=== PATIENT | male | born 1965 | race Caucasian/White ===

== ENCOUNTER 2017-01-25 10:50 | Inpatient (IN) | payer MEDICAID, OTHER ==
[~2017-01-25] VITALS: Ht 177.8 cm; Wt 89.9 kg
[~2017-01-25 10:50] MED LIST: AGM875T PO; ASP81TEC PO; CARB100T PO; CARV12.5 PO; CARV6.25 PO; COUMADIN; CRB200T PO; HYDR-34 PO; IBP800T; METR500T PO; OXC10TCR; OXYC-309 PO; VITAMIN B 12 SC; WARF10TA PO; WRF10T; WRF10T PO
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
--- NOTE | 2017-01-25 11:11 | ED Lower Extremity ---
General Chief Complaint: Lower Extremity Stated Complaint: FALL/LEFT ANKLE INJURY Nursing Triage Note: Pt had been "drinking", stumbled and fell in his house early this morning. Nursing Sepsis Screen: No Definite Risk Source: patient, RN notes reviewed Exam Limitations: no limitations History of Present Illness Time seen by provider: 11:11 Initial Comments As above and below. Onset: this morning Pain/Injury Location: left ankle Method of Injury: fell Modifying Factors: Worse With Movement Allergies and Home Medications Allergies Coded Allergies: No Known Drug Allergies (Verified , 01/25/17) Home Medications Carbamazepine 200 Mg Tablet, 600 MG PO BID, (Reported) TAKES 3 (200 MG) TABLETS Carvedilol 12.5 Mg Tablet, 12.5 MG PO BID, (Reported) Cefdinir 300 Mg Capsule, 300 MG PO BID, #14 Prescribed by: RYLAN DOMINIQUE on 01/28/17 1105 Enoxaparin Sodium 100 Mg/1 Ml Syringe, 100 MG SQ BID, #14 Prescribed by: RYLAN DOMINIQUE on 01/28/17 1035 Oxycodone HCl/Acetaminophen 1 Each Tablet, 1 TAB PO Q6H PRN for PAIN, #60 Prescribed by: RYLAN DOMINIQUE on 01/28/17 1035 Warfarin Sodium 10 Mg Tablet, 20 MG PO SuMoWeFrSa, (Reported) TAKES 2 (10MG) TABLETS Warfarin Sodium 10 Mg Tablet, 15 MG PO TuTh, (Reported) TAKES 1 & 1/2 OF A (10 MG) TABLET Constitutional: see HPI Musculoskeletal: see HPI, other (left ankle pain) All Other Systems Reviewed Negative Unless Noted: Yes (Negative excepted noted.) Past Essazmt-Emiguf-Viqzoy Hx Patient Social History Recent Foreign Travel: No Contact w/Someone Who Travel: No Recent Infectious Disease Expo: No Immunizations Up To Date Tetanus Booster (TDap): Less than 5yrs Surgeries HX Surgeries: Yes (BROKEN R FEMUR AND BROKEN R HIP) Respiratory Hx Respiratory Disorders: No Cardiovascular Hx Cardiac Disorders: Yes Neurological Hx Neurological Disorders: Yes Reproductive System Hx Reproductive Disorders: No Genitourinary Hx Genitourinary Disorders: Yes (states fell and hit corner of porch and split kidney in half m1y 5, 2010) Gastrointestinal Hx Gastrointestinal Disorders: No Musculoskeletal Hx Musculoskeletal Disorders: Yes (per pt "fused" rt hip) Musculoskeletal Disorders: Fractures Endocrine Hx Endocrine Disorders: No HEENT HX ENT Disorders: Yes HEENT Disorders: Cataract Hearing Impairment: Denies Cancer Hx Cancer: No Psychosocial Hx Psychiatric Problems: No Integumentary HX Skin/Integumentary Disorder: No Blood Transfusions Hx Blood Disorders: No Family Medical History Family Medial History: Cancer G8 SISTER, Onset:40's - 50 Chest pain 19 MOTHER, Onset:60 years & older Family history: Cardiovascular disease 19 MOTHER, Onset:60 years & older Family history: Diabetes mellitus 19 FATHER, Onset:20's - 25 Family history: Hypertension 19 MOTHER, Onset:40's - 50 Physical Exam Vital Signs Capillary Refill : Less Than 3 Seconds General Appearance: WD/WN, mild distress Cardiovascular: regular rate, rhythm Respiratory: no respiratory distress Ankles: left ankle bone tenderness, left ankle deformity, left ankle limited range of motion, left ankle pain, left ankle soft tissue tenderness, left ankle swelling Neurologic/Psychiatric: no motor/sensory deficits, alert, oriented x 3 Skin: warm/dry Patient Education: Explained Benefits, Pt. Ack. Understanding Agreement on procedure with pt: Yes Breath Sounds per Auscultation: Clear (diminished) Heart Sounds per Auscultation: Regular Airway Exam: Mouth opens >2 fingers, Neck Full Range of Motion, Visulation of Uvula Sedation Adminstration Time: 13:45 Total Time spent in CS 20' Progress/Conclusion Tolerated reduction well. No problems c/ sedation. Splinting and Joint Reduction : Location: left ankle Pre-Proc Neuro Vasc Exam: normal Post-Proc Neuro Vasc Exam: normal Reduction Attempts: 1 Pre-Procedure NV Exam: Yes post joint reduction film: alignment of dislocation/fx improved Bi wrap: Yes Hand-Made Type: orthoglass Splint Application: Short Leg Progress/Results/Core Measures Results/Orders Lab Results Laboratory Tests Test 01/25/17 12:35 Range/Units White Blood Count 5.7 4.3-11.0 10^3/uL Red Blood Count 4.46 4.35-5.85 10^6/uL Hemoglobin 15.4 13.3-17.7 G/DL Hematocrit 44 40-54 % Mean Corpuscular Volume 98 80-99 FL Mean Corpuscular Hemoglobin 35 H 25-34 PG Mean Corpuscular Hemoglobin Concent 35 32-36 G/DL Red Cell Distribution Width 12.5 10.0-14.5 % Platelet Count 176 130-400 10^3/uL Mean Platelet Volume 9.4 7.4-10.4 FL Neutrophils (%) (Auto) 70 42-75 % Lymphocytes (%) (Auto) 17 12-44 % Monocytes (%) (Auto) 11 0-12 % Eosinophils (%) (Auto) 2 0-10 % Basophils (%) (Auto) 0 0-10 % Neutrophils # (Auto) 4.0 1.8-7.8 X 10^3 Lymphocytes # (Auto) 1.0 1.0-4.0 X 10^3 Monocytes # (Auto) 0.6 0.0-1.0 X 10^3 Eosinophils # (Auto) 0.1 0.0-0.3 10^3/uL Basophils # (Auto) 0.0 0.0-0.1 10^3/uL Prothrombin Time 39.3 H 12.2-14.7 SEC INR Comment 4.0 H 0.8-1.4 Activated Partial Thromboplast Time 45 H 24-35 SEC Sodium Level 141 135-145 MMOL/L Potassium Level 4.6 3.6-5.0 MMOL/L Chloride Level 104 98-107 MMOL/L Carbon Dioxide Level 25 21-32 MMOL/L Anion Gap 12 5-14 MMOL/L Blood Urea Nitrogen 16 7-18 MG/DL Creatinine 0.82 0.60-1.30 MG/DL Estimat Glomerular Filtration Rate > 60 BUN/Creatinine Ratio 20 Glucose Level 94 70-105 MG/DL Calcium Level 8.6 8.5-10.1 MG/DL Magnesium Level 2.1 1.8-2.4 MG/DL Total Bilirubin 0.3 0.1-1.0 MG/DL Aspartate Amino Transf (AST/SGOT) 38 H 5-34 U/L Alanine Aminotransferase (ALT/SGPT) 37 0-55 U/L Alkaline Phosphatase 61 40-136 U/L Total Protein 7.0 6.4-8.2 G/DL Albumin 3.9 3.2-4.5 G/DL Carbamazepine (Tegretol) Level 10.1 4.0-12.0 UG/ML Serum Alcohol 85 H <10 MG/DL My Orders Orders - STEPHANIE DOTSON DO Ankle, Left, 3 Views (01/25/17 11:10) Saline Lock/Iv-Start (01/25/17 11:46) Ekg Tracing (01/25/17 11:46) Alcohol (01/25/17 11:46) Carbamazepine (Tegretol) (01/25/17 11:46) Cbc With Automated Diff (01/25/17 11:46) Comprehensive Metabolic Panel (01/25/17 11:46) Drug Screen Stat (Urine) (01/25/17 11:46) Magnesium (01/25/17 11:46) Protime With Inr (01/25/17 11:46) Partial Thromboplastin Time (01/25/17 11:46) Chest 1 View, Ap/Pa Only (01/25/17 11:46) Hydromorphone Injection (Dilaudid Inject (01/25/17 12:00) Etomidate Injection (Amidate Injection) (01/25/17 13:31) Etomidate Injection (Amidate Injection) (01/25/17 13:45) Fentanyl Injection (Sublimaze Injection (01/25/17 14:00) Ankle, Left, 3 Views (01/25/17 14:23) Vital Signs/I&O Blood Pressure Mean: 92 Departure Communication Time/Spoke to Admitting Phy: 15:30 Impression Impression: Primary Impression: Fracture of tibia and fibula Additional Impressions: Acquired hypercoagulable state Tobacco abuse Disposition: ADMITTED INPATIENT Condition: Stable Decision to Admit Reason: Admit from ER (General) Decision to Admit/Date: Jan 25, 2017 Time/Decision to Admit Time: 15:30 Departure-Patient Inst. Referrals: STEPHANIE GONZALEZ DO (PCP/Family) Primary Care Physician Scripts Cefdinir (Cefdinir) 300 Mg Capsule 300 MG PO BID, #14 CAP Prov: RYLAN DOMINIQUE DO 01/28/17 Oxycodone HCl/Acetaminophen (Oxycodone-Acetaminophen 10-325) 1 Each Tablet 1 TAB PO Q6H Y for PAIN, #60 TAB Prov: RYLAN DOMINIQUE DO 01/28/17 Enoxaparin Sodium (Lovenox) 100 Mg/1 Ml Syringe 100 MG SQ BID, #14 SYRINGE Prov: RYLAN DOMINIQUE DO 01/28/17 Walker (Ultra-Light Rollator) 1 Each Each 1 EACH MC NEEDED Y for WEAKNESS, #1 Nonweight Bearing Left Foot Prov: BERNY LOPEZ DPM 01/28/17 STEPHANIE DOTSON DO Jan 25, 2017 11:11
--- NOTE | 2017-01-25 11:58 | Diagnostic Imaging Report ---
EXAMINATION: Three views of the left ankle. INDICATION: Left ankle injury. FINDINGS: There is lateral subluxation/near dislocation at the ankle with widening of the ankle mortise medially the medial malleolus from the medial aspect of the talus by 1.1 cm. There is a displaced oblique fracture through the distal fibula extending to the joint line and the interosseous membrane. There is a question of a fracture line through the posterior malleolus. There is also widening of the ankle joint on the lateral view seen anteriorly. Posterior subluxation of the talar dome relative to the tibial plafond is seen. IMPRESSION: Severe subluxation posteriorly and laterally at the ankle joint (near dislocation). There is an oblique displaced fracture of the distal fibula extending to the joint level and the interosseous membrane. There is also suggestion of a posterior malleolar fracture. Dictated by: Dictated on workstation # [id number]
[2017-01-25] MEDS ORDERED: HYDROmorphone (DILAUDID) 2 MG/ML VIAL IVP ONE (12:00)
[2017-01-25 12:44] LABS: BASOPHILS % (AUTO) 0 % (0-10); EOSINOPHILS # (AUTO) 0.1 10^3/uL (0.0-0.3); EOSINOPHILS % (AUTO) 2 % (0-10); LYMPHOCYTES % (AUTO) 17 % (12-44); MEAN CORPUSCULAR HEMOGLOBIN 35 PG (25-34); MEAN CORPUSCULAR HGB CONC 35 G/DL (32-36); MEAN CORPUSCULAR VOLUME 98 FL (80-99); MEAN PLATELET VOLUME 9.4 FL (7.4-10.4); MONOCYTES # (AUTO) 0.6 X 10^3 (0.0-1.0); MONOCYTES % (AUTO) 11 % (0-12); NEUTROPHILS % (AUTO) 70 % (42-75); PLATELET COUNT 176 10^3/uL (130-400); RED BLOOD COUNT 4.46 10^6/uL (4.35-5.85); RED CELL DISTRIBUTION WIDTH 12.5 % (10.0-14.5); WHITE BLOOD COUNT 5.7 10^3/uL (4.3-11.0)
--- NOTE | 2017-01-25 12:53 | Diagnostic Imaging Report ---
EXAMINATION: Portable upright radiograph of the chest. INDICATION: Left ankle fracture. COMPARISON: 04/15/2011. FINDINGS: Mild opacity in the left lung base in the area of previously seen diaphragm tenting on the 2011 exam may relate to mild remaining scarring. The process does not silhouette the diaphragm. No significant abnormality in the right lung. The heart size is normal. No effusion or pneumothorax. The mediastinum and chalo appear unremarkable. IMPRESSION: Low density opacity in the left lung base is at the location of prior diaphragm tenting and may relate to remaining mild scarring. Dictated by: Dictated on workstation # [id number]
[2017-01-25 12:54] LABS: PROTHROMBIN TIME PATIENT 39.3 SEC (12.2-14.7)
[2017-01-25 13:05] LABS: ALANINE AMINOTRANSFERASE 37 U/L (0-55); ALBUMIN 3.9 G/DL (3.2-4.5); ALCOHOL 85 MG/DL (<10); ANION GAP 12 MMOL/L (5-14); ASPARTATE AMINO TRANSFERASE 38 U/L (5-34); BILIRUBIN,TOTAL 0.3 MG/DL (0.1-1.0); BLOOD UREA NITROGEN 16 MG/DL (7-18); BUN/CREATININE RATIO 20; CALCIUM 8.6 MG/DL (8.5-10.1); CARBON DIOXIDE 25 MMOL/L (21-32); CHLORIDE 104 MMOL/L (98-107); CREATININE SERUM 0.82 MG/DL (0.60-1.30); GFR ESTIMATED > 60; GLUCOSE 94 MG/DL (70-105); MAGNESIUM 2.1 MG/DL (1.8-2.4); POTASSIUM 4.6 MMOL/L (3.6-5.0); SODIUM 141 MMOL/L (135-145)
[2017-01-25 13:12] LABS: CARBAMAZEPINE (TEGRETOL) 10.1 UG/ML (4.0-12.0)
[2017-01-25] MEDS ORDERED: ETOMIDATE IV SOLN 20 MG/10 ML VIAL ONE (13:31)
[2017-01-25] MEDS ORDERED: ETOMIDATE IV SOLN 20 MG/10 ML VIAL IV ONE (13:45)
[2017-01-25] MEDS ORDERED: fentaNYL INJECTION 100 MCG/2 ML AMP IVP ONE (14:00)
--- NOTE | 2017-01-25 14:57 | Diagnostic Imaging Report ---
3 views of the left ankle. INDICATION: Post reduction. FINDINGS: Closed reduction is performed with still-widened ankle mortise medially at about 8 mm. Displaced oblique fracture of the distal aspect of the fibula is seen. There is improved alignment of the ankle on the lateral projection. Small calcaneal spur seen. Again there is suggestion of posterior malleolar fracture as well. IMPRESSION: Improved alignment of the ankle fracture with persistent lateral subluxation and resulting widening of the ankle mortise medially. Fractures of the distal fibula and posterior malleolus again demonstrated. Dictated by: Dictated on workstation # [id number]
[2017-01-25 16:20] VITALS: BP 138/80
[2017-01-25] MEDS ORDERED: VITAMIN K 1 MG/ML ORAL SOLN 1 ML SYRINGE PO NR (16:45)
[2017-01-25] MEDS ORDERED: VITAMIN K 1 MG/ML ORAL SOLN 1 ML SYRINGE PO ONE (16:45)
[2017-01-25] MEDS ORDERED: ONDANSETRON 4 MG/2 ML (SDV) Z0FRAN IV PRN (16:45)
[2017-01-25] MEDS: NS IV 1000 ML 1,000 ML IV SCH (17:10)
--- NOTE | 2017-01-25 17:44 | Consultation ---
History of Present Illness History of Present Illness Patient Consulted On(debbie/time) 01/25/17 17:38 Date of Admission History of Present Illness Pt consulted to myself for Left dislocated ankle fracture after tripping in his home earlier this AM. His fracture was reduced and splinted in the ER. He is currently on Coumadin for history of cardiac stents with INR of 4.0 he is being given Vitamin K and Coumadin being held for OR planning. Allergies and Home Medications Allergies Coded Allergies: No Known Drug Allergies (Verified , 01/11/09) Home Medications Carbamazepine 200 Mg Tablet 600 TAB PO BID (Reported) TAKES 3 (200MG) TABLETS TWICE DAILY Carvedilol 12.5 Mg Tablet 12.5 MG PO BID (Reported) Hydrocodone Bit/Acetaminophen 1 Ea Tablet #35 1-2 EA PO Q6HR PRN Prescribed by: JOHNNIE LOMBARDI on 03/21/14 1000 Warfarin Sodium 10 Mg Tablet 15 MG PO WED, WED, WED (Reported) TAKES 1 & 1/2 (10MG) TABLET EVENINGS OF WEDNESDAY, WEDNESDAY, AND WEDNESDAY Warfarin Sodium 10 Mg Tablet 20 MG PO WED,WED,,WED (Reported) TAKES 2 (10MG) TABLETS EVENINGS OF WEDNESDAY, WEDNESDAY, WEDNESDAY, WEDNESDAY Past Gmcxnkr-Ualvmr-Dirfke Hx Patient Social History Alcohol Use: Occasionally Uses Recreational Drug Use: No Smoking Status: Current Everyday Smoker Type Used: Cigarettes 2nd Hand Smoke Exposure: No Recent Foreign Travel: No Contact w/Someone Who Travel: No Recent Infectious Disease Expo: No Immunizations Up To Date Tetanus Booster (TDap): Less than 5yrs Surgeries HX Surgeries: Yes (BROKEN R FEMUR AND BROKEN R HIP) Respiratory Hx Respiratory Disorders: No Cardiovascular Hx Cardiac Disorders: Yes Neurological Hx Neurological Disorders: Yes Reproductive System Hx Reproductive Disorders: No Genitourinary Hx Genitourinary Disorders: Yes (states fell and hit corner of porch and split kidney in half m1y 2010) Gastrointestinal Hx Gastrointestinal Disorders: No Musculoskeletal Hx Musculoskeletal Disorders: Yes (per pt "fused" rt hip) Musculoskeletal Disorders: Fractures Endocrine Hx Endocrine Disorders: No HEENT HX ENT Disorders: Yes HEENT Disorders: Cataract Hearing Impairment: Denies Cancer Hx Cancer: No Psychosocial Hx Psychiatric Problems: No Integumentary HX Skin/Integumentary Disorder: No Blood Transfusions Hx Blood Disorders: No Family Medical History Family Medial History: Cancer G8 SISTER, Onset:40's - 50 Chest pain 19 MOTHER, Onset:60 years & older Family history: Cardiovascular disease 19 MOTHER, Onset:60 years & older Family history: Diabetes mellitus 19 FATHER, Onset:20's - Family history: Hypertension 19 MOTHER, Onset:40's - 50 Review of Systems-General Constitutional: No no symptoms reported, No see HPI, No chills, No diaphoresis , No dizziness, No fever, No malaise, No weakness, No weight gain, No weight loss, No other Respiratory: No no symptoms reported, No see HPI, No cough, No dyspnea on exertion, No hemoptysis, No orthopnea, No phlegm, No short of breath, No stridor , No wheezing, No other Physical Exam-General Problems Physical Exam Vital Signs Vital Sign - Last 12Hours 01/25/17 01/25/17 01/25/17 11:08 14:15 16:59 Temp 97.5 Pulse 80 Resp 16 B/P 112/82 Pulse Ox 98 O2 Delivery Nasal Cannula O2 Flow Rate 2 3 Capillary Refill : Less Than 3 Seconds Extremities: other (Left Ankle splinted in reduced position, DP/PT palpable, ROM intact to the digits, gross sensation intact, pain to the medial and lateral ankle, no signs of compartment syndrome, achilles intact, no pain to the midfoot. ) Assessment/Plan Assessment/Plan Admission Diagnosis/Plan Trimalleolar Ankle Fracture LLE -Plan for ORIF Wednesday after noon -NPO Wednesday -Consent for ORIF Left Ankle -Ice and Elevate LLE at all times -NWB LLE -PT/OT NWB LLE. -Defer to Hospitalist for management of anticoags consider FFP tomorrow if needed for INR <1.5 for Surgical intervention. BERNY LOPEZ DPM Jan 25, 2017 17:44
[2017-01-25] MEDS: HYDROmorphone (DILAUDID) 2 MG/ML VIAL IV PRN (17:52)
[2017-01-25] MEDS ORDERED: FLU TRIvalent (5 YOA+) 2016-17 (AFLURIA) 0.5 ML IM ONE (18:45)
[2017-01-25 20:00] VITALS: BP 143/90
[2017-01-25] MEDS: FAMOTIDINE 20 MG (PEPCID) TABLET PO SCH (21:00)
[2017-01-25] MEDS: CARVEDILOL 12.5 MG (COREG) TABLET PO SCH (21:12)
[2017-01-25] MEDS: carBAMazepine 200 MG (TEGretol) TAB PO SCH (21:12)
[2017-01-25] MEDS: oxyCODONE/APAP 10/325MG (PERCOCET 10) TABLET PO PRN (21:12)
[2017-01-26 00:15] VITALS: BP 120/79
[2017-01-26] MEDS: HYDROmorphone (DILAUDID) 2 MG/ML VIAL IV PRN ×4 (01:53→23:00)
[2017-01-26 04:00] VITALS: BP 136/95
[2017-01-26] MEDS: oxyCODONE/APAP 10/325MG (PERCOCET 10) TABLET PO PRN ×4 (05:02→23:00)
[2017-01-26 05:37] LABS: INR 1.7 (0.8-1.4); PROTHROMBIN TIME PATIENT 19.3 SEC (12.2-14.7)
[2017-01-26 08:00] VITALS: BP 154/88
[2017-01-26] MEDS ORDERED: CARV12.53 PO (08:36)
[2017-01-26] MEDS ORDERED: CARB200T6 PO (08:36)
[2017-01-26] MEDS ORDERED: RT-ALBUTEROL/IPRATROPIUM 3 ML (DUONEB) VIAL INH PRN (09:15)
[2017-01-26] MEDS: FAMOTIDINE 20 MG (PEPCID) TABLET PO SCH ×2 (09:26→20:20)
[2017-01-26] MEDS: CARVEDILOL 12.5 MG (COREG) TABLET PO SCH ×2 (09:26→20:20)
[2017-01-26] MEDS: carBAMazepine 200 MG (TEGretol) TAB PO SCH ×2 (09:26→20:20)
[2017-01-26] MEDS ORDERED: WARF10TA44 PO (10:16)
[2017-01-26] MEDS ORDERED: OXYC-465 PO (10:30)
[2017-01-26] MEDS ORDERED: VITAMIN K 1 MG/ML ORAL SOLN 1 ML SYRINGE PO ONE (10:45)
--- NOTE | 2017-01-26 10:53 | Podiatry Progress Note ---
Standard Progress Note Progress Notes/Assess & Plan Progress/Assessment & Plan Pt seen at BS, stable denies CP/SOB, denies F/C/N/V. Pain controlled. LLE- splint C/D/I, active ROM intact to the digits, gross sensation intact Final Diagnosis Trimalleolar Ankle Fracture LLE -INR down to 1.7 give 5mg Vit K, would like INR <1.5 for OR -Repeat INR tomorrow -Consult Hospitalist for Med Comgt and Cardiac clearance -Plan for OR tomorrow if cleared by Hospitalist -NPO tomorrow -NWBERNY SAHU DPM Jan 26, 2017 10:53
[2017-01-26] MEDS ORDERED: CATHETER FLUSH 10 ML SYR IV PRN (11:15)
[2017-01-26 12:00] VITALS: BP 122/84
[2017-01-26] MEDS: NS IV 1000 ML 1,000 ML IV SCH (16:45)
[2017-01-26 17:00] VITALS: BP 143/90
[2017-01-26 20:00] VITALS: BP 132/88
[2017-01-27] VITALS: BP 124/84
[2017-01-27] MEDS: HYDROmorphone (DILAUDID) 2 MG/ML VIAL IV PRN ×3 (02:22→16:40)
[2017-01-27 04:00] VITALS: BP 122/78
[2017-01-27 05:39] LABS: INR 1.1 (0.8-1.4); PROTHROMBIN TIME PATIENT 14.1 SEC (12.2-14.7)
[2017-01-27] MEDS: oxyCODONE/APAP 10/325MG (PERCOCET 10) TABLET PO PRN ×2 (06:52→21:26)
--- NOTE | 2017-01-27 07:03 | Consultation-Hospitalist ---
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 He was in his home the night of the fall had alcohol consumption and got tripped up and resulted in the fall that fractured the left ankle. He has been on Coumadin for many years and has a filter placed due to the fact that he has multiple DVTs in the past. He has been reversed with vitamin K by Dr. Rosy smallwood and considering he has a filter placed Will aggressively start Lovenox 1 mg/kg soon as approved by Dr. Rosy baron after surgery today and continue that as an outpatient until INR is therapeutic. I reconcile all of his home meds and he is ready for surgery. He did receive breathing treatments for wheezing and he is an active smoker. Source: patient Exam Limitations: no limitations Date Seen 01/27/17 Attending Physician Jevon Schilling Dpm PCP Mo Beltran DO Referring Physician Date of Admission Jan 25, 2017 at 14:53 Home Medications & Allergies Home Medications Reviewed patient Home Medication Reconciliation Form Allergies Coded Allergies: No Known Drug Allergies (Verified , 01/25/17) Past Yfdoaep-Puondn-Wazcvc Hx Patient Social History Marrital Status: single Employed/Student: unemployed Alcohol Use: Occasionally Uses Recreational Drug Use: No Smoking Status: Current Everyday Smoker Type Used: Cigarettes 2nd Hand Smoke Exposure: No Physical Abuse Screen: No Sexual Abuse: No Recent Foreign Travel: No Contact w/other who traveled: No Recent Hopitalizations: No (BROKEN FEMUR AND BROKEN HIP, 2007 DVT) Recent Infectious Disease Expo: No Immunizations Up To Date Tetanus Booster (TDap): Less than 5yrs Seasonal Allergies Seasonal Allergies: No Surgeries HX Surgeries: Yes (BROKEN R FEMUR AND BROKEN R HIP) Respiratory Hx Respiratory Disorders: Yes Respiratory Disorders: COPD Cardiovascular Hx Cardiovascular Disorders: Yes Cardiac Disorders: Deep Vein Thrombosis, Hypertension Neurological Hx Neurological Disorders: Yes Reproductive System Hx Reproductive Disorders: No Genitourinary Hx Genitourinary Disorders: Yes (states fell and hit corner of porch and split kidney in half march 19, 2011) Gastrointestinal Hx Gastrointestinal Disorders: No Musculoskeletal Hx Musculoskeletal Disorders: Yes (per pt "fused" rt hip) Musculoskeletal Disorders: Fractures Endocrine Hx Endocrine Disorders: No HEENT HX ENT Disorders: Yes HEENT Disorders: Cataract Hearing Impairment: Denies Cancer Hx Cancer: No Psychosocial Hx Psychiatric Problems: No Integumentary HX Skin/Integumentary Disorder: No Blood Transfusions Hx Blood Disorders: No Family Medical History Family Hx: Cancer G8 SISTER, Onset:40's - 50 Chest pain 19 MOTHER, Onset:60 years & older Family history: Cardiovascular disease 19 MOTHER, Onset:60 years & older Family history: Diabetes mellitus 19 FATHER, Onset:20s - Family history: Hypertension 19 MOTHER, Onset:40's - 50 Review of Systems Constitutional: see HPI EENTM: no symptoms reported Respiratory: cough Cardiovascular: no symptoms reported Gastrointestinal: no symptoms reported Genitourinary: no symptoms reported Musculoskeletal: joint pain Skin: no symptoms reported Psychiatric/Neurological: No Symptoms Reported All Other Systems Reviewed Negative Unless Noted: Yes Physical Exam Physical Exam Vital Signs Vital Sign - Last 12Hours 01/25/17 01/25/17 01/25/17 11:08 14:15 16:04 Temp 97.5 Pulse 80 Resp 16 B/P 112/82 Pulse Ox 98 O2 Delivery Nasal Cannula O2 Flow Rate 2 3 Capillary Refill : Less Than 3 SecondsLess Than 3 Seconds General Appearance: No Apparent Distress WD/WN Chronically ill Eyes: Bilateral Eye Normal Inspection, Bilateral Eye PERRL HEENT: PERRL/EOMI Normal ENT Inspection Pharynx Normal Neck: Full Range of Motion Normal Inspection Non Tender Supple Carotid Bruit Respiratory: Chest Non Tender No Accessory Muscle Use No Respiratory Distress Crackles Wheezing Cardiovascular: Regular Rate, Rhythm No Edema No Gallop No JVD No Murmur Normal Peripheral Pulses Gastrointestinal: Normal Bowel Sounds No Organomegaly No Pulsatile Mass Non Tender Soft Back: Normal Inspection No CVA Tenderness No Vertebral Tenderness Extremity: Normal Capillary Refill Normal Inspection Normal Range of Motion ( except left leg in dressing and splint) Non Tender No Calf Tenderness No Pedal Edema Neurologic/Psychiatric: Alert Oriented x3 No Motor/Sensory Deficits Normal Mood/Affect Skin: Normal Color Warm/Dry Lymphatic: No Adenopathy Results Results/Procedures Lab Laboratory Tests 01/25/17 12:35 Assessment/Plan Admission Diagnosis Assessment: Acute left ankle fracture in need of surgical repair with hardware placement by Dr. Schilling today Alcoholism Marijuana use on urine drug screen Multiple falls in the past Seizure disorder Multiple DVTs in the past requiring filter placement and maintained on Coumadin therapy Slight wheezing on exam with history of COPD and active smoking Assessment and Plan Plan: Start Lovenox 1 mg/kg until INR is therapeutic Surgery today Breathing treatments Monitor closely but since he has a filter placed we will restart Coumadin as soon as possible and Lovenox as long as approved by Dr. Schilling as long as does not put patient at risk for severe bleeding Clinical Quality Measures DVT/VTE Risk/Contraindication: Risk Factor Score Per Nursin RFS Level Per Nursing on Admit: 4+=Very High RYLAN DOMINIQUE DO Jan 27, 2017 07:03
[2017-01-27] MEDS: FAMOTIDINE 20 MG (PEPCID) TABLET PO SCH (07:57)
[2017-01-27] MEDS: carBAMazepine 200 MG (TEGretol) TAB PO SCH ×2 (07:57→21:26)
[2017-01-27] MEDS: CARVEDILOL 12.5 MG (COREG) TABLET PO SCH ×2 (07:57→21:26)
[2017-01-27 08:00] VITALS: BP 106/72
[2017-01-27] MEDS: RT-ALBUTEROL/IPRATROPIUM 3 ML (DUONEB) VIAL INH SCH ×4 (09:40→19:56)
[2017-01-27] MEDS ORDERED: LIDOCAINE PF 2% 10 ML (XYLOCAINE) AMP ONE (10:53)
[2017-01-27] MEDS ORDERED: ONDANSETRON 4 MG/2 ML (SDV) Z0FRAN ONE (10:53)
[2017-01-27] MEDS ORDERED: LACTATED RINGERS 1,000 ML IV ONE (10:53)
[2017-01-27] MEDS ORDERED: SEVOFLURANE (ULTANE) 15 ML INHAL SOLN ONE ×4 (10:53→14:05)
[2017-01-27] MEDS ORDERED: proPOfol 200 MG/20 ML (DIPRIVAN) VIAL IV ONE (10:53)
[2017-01-27] MEDS ORDERED: fentaNYL INJECTION 100 MCG/2 ML AMP ONE ×2 (10:54→12:59)
[2017-01-27] MEDS ORDERED: MIDAZOLAM 2 MG/2 ML (VERSED) VIAL ONE (10:54)
[2017-01-27 12:00] VITALS: BP 117/75
[2017-01-27] MEDS ORDERED: ENOXAPARIN 100 MG/1 ML (LOVENOX) SYR SC SCH (12:00)
[2017-01-27] MEDS ORDERED: BUPIVACAINE 0.5% 30 ML (SENSORCAINE) VIAL ONE (12:06)
[2017-01-27] MEDS ORDERED: ceFAZolin 2 GM/50 ML NS 50 ML IV ONE (12:30)
[2017-01-27] MEDS ORDERED: ceFAZolin 1,000 MG (ANCEF) VIAL ONE (12:43)
[2017-01-27] MEDS ORDERED: LACTATED RINGERS 1,000 ML IV PRN (13:17)
[2017-01-27] MEDS ORDERED: morphine INJ 10 MG/ML 1ML (SYR OR VIAL) ONE (14:16)
--- NOTE | 2017-01-27 14:20 | Progress Note-Post Operative ---
Post-Operative Progess Note Pollution Control Engineer none Pre-Operative Diagnosis Trimalleolar Ankle Fracture LLE Post-Operative Diagnosis same Post-Op Procedure Note Date of Procedure: Jan 27, 2017 Name of Procedure: ORIF Trimal Ankle Fracture Anesthesia Type General Estimated blood loss (mL): BERNY Kelley DPJenifer Jan 27, 2017 14:20
[2017-01-27] MEDS ORDERED: morphine INJ 10 MG/ML 1ML (SYR OR VIAL) IV PRN (14:30)
[2017-01-27] MEDS ORDERED: PROMETHAZINE INJ 25 MG/ML (PHENERGAN) AMP IV PRN (14:30)
[2017-01-27] MEDS ORDERED: KETOROLAC 30 MG/ML VIAL IV PRN (14:30)
[2017-01-27] MEDS ORDERED: ONDANSETRON 4 MG/2 ML (SDV) Z0FRAN IV PRN (14:30)
[2017-01-27] MEDS ORDERED: fentaNYL INJECTION 100 MCG/2 ML AMP IV PRN (14:30)
[2017-01-27 16:00] VITALS: BP_SYST 122; BP_DIAS 22; BP_DIAS 72
[2017-01-27] MEDS: NS IV 1000 ML 1,000 ML IV SCH (16:45)
--- NOTE | 2017-01-27 17:37 | Diagnostic Imaging Report ---
INDICATION: Undergoing internal fixation for ankle fracture. TECHNIQUE: Four intraoperative views of the left ankle. CORRELATION STUDY: 01/25/2017. FINDINGS: Intraoperative images demonstrate placement of a lateral cortical plate and multiple screws transfixing the distal fibula. Alignment of the obliquely oriented fibular fracture is improved and near anatomic. Additional single syndesmotic screw has been placed. Ankle mortise appears to be improved and anatomic on followup. IMPRESSION: Internal fixation was performed of the distal fibula as well as syndesmotic screw. Ankle mortise appears near-anatomic. Dictated by: Dictated on workstation # [id number]
[2017-01-27] MEDS ORDERED: warFARin 10 MG (COUMADIN) TAB PO SCH (18:00)
[2017-01-27] MEDS ORDERED: warFARin 7.5 MG (COUMADIN) TAB PO SCH (18:00)
[2017-01-27 20:00] VITALS: BP 132/72
[2017-01-28] VITALS: BP 154/79
[2017-01-28] MEDS ORDERED: ACETAMINOPHEN 500 MG TAB (TYLENOL) PO PRN ×2 (01:15→06:47)
[2017-01-28] MEDS: NS IV 1000 ML 1,000 ML IV SCH (01:20)
[2017-01-28 04:00] VITALS: BP 140/82
[2017-01-28 05:23] LABS: BASOPHILS % (AUTO) 0 % (0-10); EOSINOPHILS # (AUTO) 0.1 10^3/uL (0.0-0.3); EOSINOPHILS % (AUTO) 1 % (0-10); LYMPHOCYTES # (AUTO) 0.9 X 10^3 (1.0-4.0); LYMPHOCYTES % (AUTO) 14 % (12-44); MEAN CORPUSCULAR HEMOGLOBIN 34 PG (25-34); MEAN CORPUSCULAR HGB CONC 34 G/DL (32-36); MEAN CORPUSCULAR VOLUME 103 FL (80-99); MEAN PLATELET VOLUME 9.8 FL (7.4-10.4); MONOCYTES # (AUTO) 0.9 X 10^3 (0.0-1.0); MONOCYTES % (AUTO) 14 % (0-12); NEUTROPHILS # (AUTO) 4.3 X 10^3 (1.8-7.8); NEUTROPHILS % (AUTO) 71 % (42-75); PLATELET COUNT 148 10^3/uL (130-400); RED BLOOD COUNT 3.67 10^6/uL (4.35-5.85); RED CELL DISTRIBUTION WIDTH 11.8 % (10.0-14.5); WHITE BLOOD COUNT 6.1 10^3/uL (4.3-11.0)
[2017-01-28 05:33] LABS: INR 1.1 (0.8-1.4); PROTHROMBIN TIME PATIENT 13.8 SEC (12.2-14.7)
[2017-01-28 05:45] LABS: ALANINE AMINOTRANSFERASE 20 U/L (0-55); ALBUMIN 3.1 G/DL (3.2-4.5); ANION GAP 12 MMOL/L (5-14); ASPARTATE AMINO TRANSFERASE 22 U/L (5-34); BILIRUBIN,TOTAL 0.4 MG/DL (0.1-1.0); BLOOD UREA NITROGEN 9 MG/DL (7-18); BUN/CREATININE RATIO 12; CARBON DIOXIDE 23 MMOL/L (21-32); CHLORIDE 103 MMOL/L (98-107); CREATININE SERUM 0.77 MG/DL (0.60-1.30); GFR ESTIMATED > 60; GLUCOSE 95 MG/DL (70-105); POTASSIUM 3.9 MMOL/L (3.6-5.0); SODIUM 138 MMOL/L (135-145); TOTAL PROTEIN 5.9 G/DL (6.4-8.2)
[2017-01-28] MEDS ORDERED: ENOXAPARIN 100 MG/1 ML (LOVENOX) SYR SC SCH (06:00)
--- NOTE | 2017-01-28 07:42 | Podiatry Progress Note ---
Standard Progress Note Progress Notes/Assess & Plan Progress/Assessment & Plan Pt seen at [facility], stable denies CP/SOB, denies F/C/N/V. Pain controlled. LLE- splint C/D/I, active ROM intact to the digits, gross sensation intact Final Diagnosis POD #1 ORIF Left Ankle Fracture -For D/C today -D/C with 90mg Lovenox BID for 5 days -restart Coumadin -NWB LLE -Follow up in 2 weeks. BERNY LOPEZ DPM Jan 28, 2017 07:42
--- NOTE | 2017-01-28 07:44 | Discharge Summary ---
Diagnosis/Chief Complaint Date of Admission Jan 25, 2017 at 14:53 Date of Discharge 01/28/2017 Discharge Date: Jan 28, 2017 Admission Diagnosis Admission Diagnosis Left Trimal Ankle Fx Discharge Diagnosis same Reason Hospital Visit Pt consulted to myself for Left dislocated ankle fracture after tripping in his home earlier this AM. His fracture was reduced and splinted in the ER. He is currently on Coumadin for history of cardiac stents with INR of 4.0 he is being given Vitamin K and Coumadin being held for OR planning. Discharge Summary Procedures: ORIF Left Ankle Fx Discharge Physical Examination Allergies: Coded Allergies: No Known Drug Allergies (Verified , 01/25/17) Vitals & I&Os Vital Signs Date Time Temp Pulse Resp B/P Pulse Ox O2 Delivery O2 Flow Rate FiO2 01/28/17 03:23 100.8 01/28/17 00:00 116 21 154/79 90 Room Air 01/27/17 20:00 1.50 General Appearance: Oriented X3 HEENT: PERRLA Respiratory: Clear to Auscultation Cardiovascular: Regular Rate Abdominal: Normal Bowel Sounds Hospital Course uneventful Pending Labs Laboratory Tests 01/28/17 04:44: Alanine Aminotransferase (ALT/SGPT) 20, Albumin 3.1, Alkaline Phosphatase 50, Anion Gap 12, Aspartate Amino Transf (AST/SGOT) 22, BUN/Creatinine Ratio 12, Basophils # (Auto) 0.0, Basophils (%) (Auto) 0, Blood Urea Nitrogen 9, Calcium Level 8.0, Carbon Dioxide Level 23, Chloride Level 103, Creatinine 0.77, Eosinophils # (Auto) 0.1, Eosinophils (%) (Auto) 1, Estimat Glomerular Filtration Rate > 60, Glucose Level 95, Hematocrit 38, Hemoglobin 12.6, INR Comment 1.1, Lymphocytes # (Auto) 0.9, Lymphocytes (%) (Auto) 14, Mean Corpuscular Hemoglobin 34, Mean Corpuscular Hemoglobin Concent 34, Mean Corpuscular Volume 103, Mean Platelet Volume 9.8, Monocytes # (Auto) 0.9, Monocytes (%) (Auto) 14, Neutrophils # (Auto) 4.3, Neutrophils (%) (Auto) 71, Platelet Count 148, Potassium Level 3.9, Prothrombin Time 13.8, Red Blood Count 3.67, Red Cell Distribution Width 11.8, Sodium Level 138, Total Bilirubin 0.4, Total Protein 5.9, White Blood Count 6.1 Discussion & Recommendations NWB LLE, Bridge Lovenox to Coumadin Discharge Condition at discharge stable Instructions to patient/family Please see electonic discharge instructions given to patient. Discharge Medications Reviewed and agree with Discharge Medication list on patient's Discharge Instruction sheet Clinical Quality Measures DVT/VTE Risk/Contraindication: Risk Factor Score Per Nursin RFS Level Per Nursing on Admit: 4+=Very High BERNY LOPEZ DPM Jan 28, 2017 07:44
[2017-01-28] MEDS ORDERED: HYDR-3730 PO (07:46)
[2017-01-28] MEDS ORDERED: ENOX100D9 SQ ×2 (07:49→10:35)
--- NOTE | 2017-01-28 07:50 | Discharge Inst-Surgical ---
Discharge Inst-Surgical Consults/Follow Up Goal/Follow Up Appt.: FOLLOW UP WITH DR LOPEZ IN 2 WEEKS CALL [phone] FOR APPOINTMENT Patient Instructions: REMAIN NONWEIGHT BEARING TO THE LEFT FOOT. KEEP DRESSING CLEAN DRY AND INTACT DO NOT REMOVE DRESSING DO NOT GET DRESSING WET OR SOILD. ICE AND ELEVATE LEFT LEG BERNY LOPEZ DPM Jan 28, 2017 07:50
[2017-01-28] MEDS: RT-ALBUTEROL/IPRATROPIUM 3 ML (DUONEB) VIAL INH SCH ×2 (07:53→11:00)
[2017-01-28 08:00] VITALS: BP 172/90
[2017-01-28] MEDS ORDERED: warFARin 10 MG (COUMADIN) TAB PO SCH (08:00)
[2017-01-28] MEDS ORDERED: WALK1EAC23 MC (08:47)
[2017-01-28] MEDS: oxyCODONE/APAP 10/325MG (PERCOCET 10) TABLET PO PRN (08:54)
[2017-01-28] MEDS: CARVEDILOL 12.5 MG (COREG) TABLET PO SCH (09:21)
[2017-01-28] MEDS: carBAMazepine 200 MG (TEGretol) TAB PO SCH (09:22)
--- NOTE | 2017-01-28 09:52 | Physical Therapy Evaluation ---
PT Evaluation-General Medical Diagnosis Admission Date Jan 25, 2017 at 14:53 Medical Diagnosis: left dislocated ankle fracture Onset Date: Jan 25, 2017 Therapy Diagnosis Therapy Diagnosis: debility Height/Weight Height (Feet): 5 Height (Inches): 10.00 Weight (Pounds): 198 Weight (Ounces): 2.0 Precautions Precautions/Isolations: Fall Prevention Weight Bear Status Weight Bearing Restriction: Non Weight Bearing Location Restriction: LT FOOT, L LE Referral Physician: Shakir Reason for Referral: Evaluation/Treatment Medical History Pertinent Medical History: Alcoholism, COPD, HTN, Smoking Additional Medical History femur fracture, seizure disorder Current History fall at home resulting in ankle fracture Social History Home: Single Level Current Living Status: Spouse Entry Into Home: Stairs With Railing PT Steps Into Home: 2 Prior/Core FIM Prior Level of Function Functional [place] Measure 0=Not Assessed/NA 4=Minimal Assistance 1=Total Assistance 5=Supervision or Setup 2=Maximal Assistance 6=Modified [place] 3=Moderate Assistance 7=Complete [place] Bed Mobility: 7 Transfers (B,C,W/C) (FIM): 7 Gait: 7 PT Evaluation-Current Subjective Patient agrees to PT. Pain Numeric Pain Scale: 5-Moderate Pain Location: Left Location Body Site: Ankle Pain Description: Acute Pt/Family Goals DC to home today Objective Patient Orientation: Normal For Age Attachments: IV ROM/Strength ROM Lower Extremities bilateral LE WFL Strenght Lower Extremities bilateral LE WFL Integumentary/Posture Integumentary refer to nursing notes Bowel Incontinence: No Bladder Incontinence: No Posture WNL Neuromuscular (Tone, Coordination, Reflexes) grossly intact Sensory Vision: Functional Hearing: Functional Sensation Right Lower Extremit: Intact Sensation Left Lower Extremity: Intact Transfers Functional [place] Measure 0=Not Assessed/NA 4=Minimal Assistance 1=Total Assistance 5=Supervision or Setup 2=Maximal Assistance 6=Modified [place] 3=Moderate Assistance 7=Complete [place] Transfers (B, C, W/C) (FIM): 6 Scootin Rollin Supine to/from Sit: 6 Gait Mode of Locomotion: Walk Anticipated Mode of Locomotion: Walk Gait (FIM): 5 Distance (FIM): 3=150 ft Distance: 150' Gait Level of Assist: 5 Gait Assistive Device: FWW Comments/Gait Description NWB left LE Balance Sitting Static: Normal Sitting Dynamic: Normal Standing Static: Normal Standing Dynamic: Normal Assessment/Needs Patient will dismiss to home on this date with FWW issued for safety and compliance with NWB left LE. Patient voices no c/o at this time. Rehab Potential: Good PT Plan Treatment/Plan Treatment Plan: Discontinue PT, goals met Pt/Family Agrees w/Plan: Yes Safety Risks/Education Patient Education: Gait Training, Safety Issues Teaching Recipient: Patient, Significant Other Response to Teaching: Verbalize Understanding, Return Demonstration Discharge Recommendations Therapy D/C Recommendations: Home w/ Family Support Time/GCodes Time In: 820 Time Out: 843 Total Billed Treatment Time: 23 Total Billed Treatment 1 visit EVModC 25 min TERESA GUAMAN PT Jan 28, 2017 09:52
--- NOTE | 2017-01-28 10:25 | Progress Note-Hospitalist ---
Progress Note HPI/CC on Admission CC: Medical management of history of multiple DVTs in past following left ankle fracture History of present illness: This is a 51-year-old white male disabled from seizure disorder and right hip fusion the presents with a left ankle fracture in need of podiatry surgical management to date with hardware placement due to the severity of the fracture. He was in his home the night of the fall had alcohol consumption and got tripped up and resulted in the fall that fractured the left ankle. He has been on Coumadin for many years and has a filter placed due to the fact that he has multiple DVTs in the past. He has been reversed with vitamin K by Dr. Rosy smallwood and considering he has a filter placed Will aggressively start Lovenox 1 mg/kg soon as approved by Dr. Rosy baron after surgery today and continue that as an outpatient until INR is therapeutic. I reconcile all of his home meds and he is ready for surgery. He did receive breathing treatments for wheezing and he is an active smoker. Progress Notes/Assess & Plan Date Seen 01/28/17 Admission Dx/Process Assessment: Acute left ankle fracture in need of surgical repair with hardware placement by Dr. Schilling today Alcoholism Marijuana use on urine drug screen Multiple falls in the past Seizure disorder Multiple DVTs in the past requiring filter placement and maintained on Coumadin therapy Slight wheezing on exam with history of COPD and active smoking Diagonsis/Assessment & Plan Chart Review: Max fever 101.5 WBC 6.1 Hgb 12.6 CMP normal INR 1.1 Patient Interview: Pt states that he is doing well and that his pain is manageable. Physical exam reveals residual coarseness. Pt states that he is receiving breathing treatments. Pt does not have an IS. Pt states that he has a follow-up with Dr. Schilling in 2 weeks. Pt takes Coumadin 20mg 5 days a week and 15mg 2 days a week. Pt generally takes it in the morning. Pt will use [facility] for pharmacy needs and has prescription coverage. Pt states that Dr. Beltran checks INR multiple times per month. Pt states that he will need a walker. Pt denies need for home health. chest x-ray reveals atelectasis in both bases and a very small pleural effusion so considering his coarse breath sounds and smoking status and not ambulating well we will go ahead and treat for early bacterial bronchitis to prevent overt pneumonia Febrile at 101.5, pleasant, improved, flushed, partner at bedside Regular rate and rhythm, coarse breath sounds all andrews but improved from yesterday after breathing treatments Left ankle dressing intact Assessment: Acute left ankle fracture in need of surgical repair with hardware placement by Dr. Schilling POD # 1 Postop fever with atelectasis in both bases with small pleural effusion and smoker with wheezing on exam will cover for early bacterial bronchitis to prevent overt pneumonia with Cefdinir Alcoholism Marijuana use on urine drug screen Multiple falls in the past Seizure disorder Multiple DVTs in the past requiring filter placement and maintained on Coumadin therapy Slight wheezing on exam with history of COPD and active smoking improved on Nebs Plan: CXR noted and sent in abx IS Obtain front-wheeled walker for pt INR check with Dr. Beltran soon after DC on Wednesday Breathing treatments Lovenox in meantime 100mg SQ BID Scribed by Daniel Og under the direct supervision of Dr. Dominique. RYLAN DOMINIQUE DO Jan 28, 2017 10:25
[2017-01-28] MEDS ORDERED: OXYC-465 PO (10:35)
--- NOTE | 2017-01-28 10:50 | Diagnostic Imaging Report ---
INDICATION: Fever. Patient had ankle surgery yesterday. FINDINGS: Frontal and lateral views of the chest demonstrate development of a small right pleural effusion. Some atelectasis is present in both lung bases. The heart size and vascularity are normal. IMPRESSION: There has been development of a small right pleural effusion with atelectasis in both lung bases. Dictated by: Dictated on workstation # [id number]
[2017-01-28] MEDS ORDERED: CEFD300C3 PO (11:05)
[2017-01-28 11:57] VITALS: BP 172/90
--- NOTE | 2017-02-11 09:03 | OPERATIVE REPORT ---
PROCEDURE PHYSICIAN: BERNY LOPEZ DATE OF PROCEDURE: 01/27/2017 SURGEON: Dr. Lopez RETAIL DEPARTMENT SUPERVISOR: None. PREOPERATIVE DIAGNOSIS: Left trimalleolar equivalent ankle fracture. POSTOPERATIVE DIAGNOSIS: Left trimalleolar equivalent ankle fracture. PROCEDURE PERFORMED: Open reduction internal fixation of left trimalleolar equivalent ankle fracture. ANESTHESIA: General anesthesia. HEMOSTASIS: Pneumatic thigh tourniquet at 300 mmHg. BLOOD LOSS: Minimal. MATERIALS USED: 1. Arthrex plate and screws. 2. 3-0 Vicryl. 3. 3 nylon. INTRAOPERATIVE INJECTABLES: 20 mL 1/2 percent Marcaine plain. COMPLICATIONS: None. INDICATIONS FOR THE PROCEDURE: The patient Mo Orourke is a 51-year-old male with a history of left ankle fracture. He has been made aware of the risks and benefits of the surgery as well as alternatives to undergoing it and signed consent prior to being taken back to the OR. DESCRIPTION OF THE PROCEDURE: Under mild sedation, the patient was brought to the OR and placed on the operating table in the supine position. Following administration of general anesthesia a pneumatic thigh tourniquet was placed on the left lower extremity. The left lower extremity was scrubbed, prepped and draped in an aseptic manner. Appropriate timeout was performed with the left lower extremity identified as the surgical site. Next, an approximately 8 cm incision was made to the lateral aspect of the ankle over the distal fibula. The incision was deepened down to the level of the fibula with care being taken to avoid all major vascular structures. All bleeders were cauterized and ligated as necessary. The fracture was identified of the fibula and was debrided of all hematogenous tissue. The fracture was then reduced and temporarily fixated with fracture clamps. Appropriate fluoroscopic views were taken. There was adequate length and rotation of the distal fibula that was noted. A transfracture screw was placed across the fracture and adequate compression was noted. Next, the lateral plate was then fixated with combination of locking and nonlocking screws and there was adequate fixation of the distal fibula. Fluoroscopic views were taken. Abductory stress test was placed across the ankle. It was noted that there was a diastasis noted to the syndesmosis as well as increased clear space to the medial gutter thus indication for syndesmotic stabilization was deemed necessary. The syndesmosis was reduced and a 3.5 mm screw was placed from across the syndesmosis and there was adequate fixation noted at that time. There was a posterior tibial fracture that was noted to be less than 20% of the joint, it was also well reduced thus the indication not to provide fixation across the posterior tibial fracture was deemed satisfactory position at this time. The wound was then flushed with copious amounts of sterile saline. Deep tissues were approximated and closed with 3-0 Vicryl. Subcutaneous tissues approximated 3-0 Vicryl and skin was reapproximated with wound edges well everted using sutures and the skin nadia. 20 mL of 1/2 percent Marcaine plain were injected in the ankle and the foot was then dressed with dry sterile dressing, consisting of 4 x 4's, web roll, and Bi wrap. The patient tolerated the procedure and anesthesia well. He was transferred from OR to recovery with vital signs stable, neurovascular status intact to the left lower extremity. Job ID: [id number] Dictated Date: 02/10/2017 16:28:18 Energy Sales Broker Date: 02/11/2017 08:48:11 / paul
== END 2017-01-28 12:01 | disposition home or self-care (01) | DRG 493 ==
LOC: EDUNIT# 10:50 → ER 10:52 → 4TH 14:53
PROVIDERS: ADMIT Podiatrist; ATTEND Podiatrist
PROC: 0QSH0ZZ Reposition Left Tibia, Open Approach (ICD-10-PCS; 2017-01-27)
PROC: 0QSK04Z Reposition Left Fibula with Internal Fixation Device, Open Approach (ICD-10-PCS; principal; 2017-01-27 12:22)
DX: S82.852A Displaced trimalleolar fracture of left lower leg, initial encounter for closed fracture (principal); J98.11 Atelectasis; J90 Pleural effusion, not elsewhere classified; W19.XXXA Unspecified fall, initial encounter; Y92.019 Unspecified place in single-family (private) house as the place of occurrence of the external cause; Y99.8 Other external cause status; R50.82 Postprocedural fever; Z95.5 Presence of coronary angioplasty implant and graft; Z79.01 Long term (current) use of anticoagulants; F17.210 Nicotine dependence, cigarettes, uncomplicated; F10.20 Alcohol dependence, uncomplicated; F12.90 Cannabis use, unspecified, uncomplicated; Z91.81 History of falling; G40.909 Epilepsy, unspecified, not intractable, without status epilepticus; Z86.718 Personal history of other venous thrombosis and embolism; J44.9 Chronic obstructive pulmonary disease, unspecified
CPT/HCPCS: 27752; 29505; 36415; 71010; 71020; 73610; 80053; 80156; 80306; 80320; 83735; 85025; 85610; 85730; 87081; 93005; 93041; 94640; 94664; 94760; 96374; 96375

== ENCOUNTER 2017-06-30 11:01 | Outpatient (RCR) | payer MEDICAID ==
[~2017-06-30 11:01] MED LIST changes: +CARB200T6 PO; +CARV12.53 PO; +CEFD300C3 PO; +ENOX100D9 SQ; +HYDR-3730 PO; +OXYC-465 PO; +WALK1EAC23 MC; +WARF10TA44 PO
== END 2017-06-30 11:34 | disposition home or self-care (01) ==
PROVIDERS: ATTEND Podiatrist
DX: S82.852S Displaced trimalleolar fracture of left lower leg, sequela (principal); W19.XXXS Unspecified fall, sequela

== ENCOUNTER 2018-04-25 12:30 | Day surgery (SDC) | payer MEDICAID ==
[~2018-04-25] VITALS: Ht 177.8 cm; Wt 89.9 kg
[2018-04-25] MEDS ORDERED: NS IV 500 ML 500 ML IV PRN (12:39)
[2018-04-25] MEDS ORDERED: fentaNYL INJECTION 100 MCG/2 ML AMP IVP PRN (12:45)
[2018-04-25] MEDS ORDERED: MIDAZOLAM 2 MG/2 ML (VERSED) VIAL IVP PRN (12:45)
[2018-04-25] MEDS ORDERED: NS IV 500 ML 500 ML ONE (12:50)
[2018-04-25 13:15] VITALS: BP 139/110
[2018-04-25 13:46] LABS: INR 3.3 (0.8-1.4); PROTHROMBIN TIME PATIENT 34.1 SEC (12.2-14.7)
[2018-05-04] MEDS ORDERED: WARF10TA44 PO (09:40)
== END 2018-04-25 14:05 | disposition home or self-care (01) ==
LOC: ENDO 12:30
PROVIDERS: ATTEND Surgery
DX: Z53.9 Procedure and treatment not carried out, unspecified reason (principal); Z79.01 Long term (current) use of anticoagulants
CPT/HCPCS: 36415; 85610

== ENCOUNTER → 2018-05-04 | Outpatient (CLI) | payer MEDICAID ==
[~2018-05-04] VITALS: Ht 177.8 cm; Wt 77.2 kg
== END | disposition home or self-care (01) ==
LOC: PREOP 05-02 06:41
PROVIDERS: ATTEND Surgery
DX: Z01.818 Encounter for other preprocedural examination (principal)

== ENCOUNTER 2019-02-06 05:59 | Outpatient (CLI) | payer MEDICAID ==
[~2019-02-06] VITALS: Ht 177.8 cm; Wt 87.1 kg
== END 2019-02-06 10:54 | disposition home or self-care (01) ==
LOC: PREOP 05:59
PROVIDERS: ATTEND Specialist
DX: Z01.818 Encounter for other preprocedural examination (principal)

== ENCOUNTER 2019-02-08 09:28 | Day surgery (SDC) | payer MEDICAID ==
[~2019-02-08] VITALS: Ht 177.8 cm; Wt 87.1 kg
[2019-02-08 09:30] VITALS: BP 139/101
[2019-02-08] MEDS ORDERED: LIDOCAINE PF 1% 2 ML AMP IR PRN (09:30)
[2019-02-08] MEDS ORDERED: POVIDONE (BETADINE) OPHTH SOLN 5% 30 ML OP ONE (09:30)
[2019-02-08] MEDS ORDERED: MOXIFLOXACIN OPHTH SOLN 5 MG/ML 0.3 ML SYRINGE OP ONE (09:30)
[2019-02-08] MEDS ORDERED: TIMOLOL MALEATE 0.5% 5 ML (TIMOPTIC) BTL OU PRN (09:30)
[2019-02-08 09:39] VITALS: BP 139/101
[2019-02-08] MEDS: TETRACAINE 0.5% OPHTH SOLN 4 ML BTL (SINGLE DOSE ONLY) OU PRN ×4 (09:44→10:18)
[2019-02-08] MEDS: CYCLOPENTOLATE 1% (CYCLOGYL) 2 ML DROPS OP SCH ×3 (09:55→10:18)
[2019-02-08] MEDS: PHENYLEPHRINE 10% OPHTH (NEO-SYN) 5 ML BTL OU SCH ×3 (09:55→10:18)
--- OUTSIDE RECORDS SUMMARY | 2019-02-08 09:57 | XMS REPORT | Continuity of Care Document ---
Author Author [facility] Address Unknown Phone Unavailable Allergies Active Description Code Type Severity Reaction Onset Reported/Identified Relationship to Patient Clinical Status Yes No Known Drug Allergies [id number] Drug Allergy Unknown N/A 05/09/2018 Medications There is no data. Problems Date Dx Coded Attending Type Code [...] 682.3 CELLULITIS OF ARM 09/11/2012 Ot 959.3 ELB/FOREARM/ WRST INJ NOS 09/11/2012 Ot E000.8 OTHER EXTERNAL CAUSE STATUS 09/11/2012 Ot E888.9 FALL NOS 09/11/2012 Ot V06.1 DIPHTHERIA- TETANUS-PERTUSSIS, COMBINED [ 09/14/2012 Ot 285.9 ANEMIA NOS [...] 02/15/2015 Ot 682.3 02/15/2015 JOSE RAUL GONZALEZ LOOPER OPERATOR Ot 719.45 02/15/2015 JOSE RAUL GONZALEZ LOOPER OPERATOR Ot V15.88 04/10/2015 Ot 453.40 04/10/2015 Ot 682.3 04/10/2015 JOSE RAUL GONZALEZ LOOPER OPERATOR Ot 719.45 04/10/2015 JOSE RAUL GONZALEZ L LOOPER OPERATOR Ot V15.88 04/10/2015 BHAVESH GONZALEZRICIA L LOOPER OPERATOR Ot V58.69 04/10/2015 MORGAN GONZALEZIA L LOOPER OPERATOR Ot V58.83 04/10/2015 BHAVESH GONZALEZRICIA L LOOPER OPERATOR Ot V58.69 04/10/2015 BHAVESH GONZALEZRICIA L LOOPER OPERATOR Ot V58.83 05/13/2015 BHAVESH GONZALEZRICIA L LOOPER OPERATOR Ot V58.69 05/13/2015 BHAVESH GONZALEZRICIA L LOOPER OPERATOR Ot V58.83 05/13/2015 Ot 453.40 05/13/2015 Ot 682.3 05/13/2015 MORGAN GONZALEZIA L LOOPER OPERATOR Ot 719.45 05/13/2015 JOSE RAUL GONZALEZ L LOOPER OPERATOR Ot V15.88 05/13/2015 BHAVESH GONZALEZRICIA L LOOPER OPERATOR Ot V58.69 05/13/2015 MORGAN GONZALEZIA L LOOPER OPERATOR Ot V58.83 06/13/2015 JOSE RAUL GONZALEZ LOOPER OPERATOR Ot V58.69 OT MED,LT,CURRENT USE 06/13/2015 JOSE RAUL GONZALEZ L LOOPER OPERATOR Ot V58.83 ENCOUNTER FOR THERAPEUTIC DRUG MONITORIN 02/19/2016 Ot 607.84 02/19/2016 Ot V58.69 03/29/2016 STEPHANIE GONZALEZ DO Ot G40.909 EPILEPSY, UNSP, NOT INTRACTABLE, WITHOUT 03/29/2016 STEPHANIE GONZALEZ DO Ot I87.2 VENOUS INSUFFICIENCY (CHRONIC) (PERIPHER 05/11/2016 Ot 682.3 CELLULITIS OF ARM 05/11/2016 JOSE RAUL GONZALEZ L LOOPER OPERATOR Ot 719.45 JOINT PAIN-PELVIS 05/11/2016 MORGAN GONZALEZIA L LOOPER OPERATOR Ot V15.88 HISTORY OF FALL 05/11/2016 MORGAN GONZALEZIA L LOOPER OPERATOR Ot V58.69 OTH MED,LT,CURRENT USE 05/11/2016 BHAVESH GONZALEZRICIA L LOOPER OPERATOR Ot V58.83 ENCOUNTER FOR THERAPEUTIC DRUG MONITORIN 05/11/2016 Ot 607.84 IMPOTENCE, ORGANIC ORIGN 05/11/2016 Ot V58.69 OTH MED,LT, CURRENT USE 05/11/2016 STEPHANIE GONZALEZ DO Ot G40.909 EPILEPSY, UNSP, NOT INTRACTABLE, WITHOUT 05/11/2016 STEPHANIE GONZALEZ DO Ot I87.2 VENOUS INSUFFICIENCY (CHRONIC) (PERIPHER 01/25/2017 Ot 682.3 CELLULITIS OF ARM 01/25/2017 MORGAN GONZALEZIA L LOOPER OPERATOR Ot 719.45 JOINT PAIN-PELVIS 01/25/2017 MORGAN GONZALEZIA L LOOPER OPERATOR Ot V15.88 HISTORY OF FALL 01/25/2017 MORGAN GONZALEZIA L LOOPER OPERATOR Ot V58.69 OTH MED,LT,CURRENT USE 01/25/2017 BHAVESH GONZALEZRICIA L LOOPER OPERATOR Ot V58.83 ENCOUNTER FOR THERAPEUTIC DRUG MONITORIN 01/25/2017 Ot 607.84 IMPOTENCE, ORGANIC ORIGN 01/25/2017 Ot V58.69 OTH MED,LT, CURRENT USE 01/25/2017 STEPHANIE GONZALEZ DO Ot G40.909 EPILEPSY, UNSP, NOT INTRACTABLE, WITHOUT 01/25/2017 STEPHANIE GONZALEZ DO Ot I87.2 VENOUS INSUFFICIENCY (CHRONIC) (PERIPHER 01/25/2017 Ot 682.3 CELLULITIS OF ARM 01/25/2017 BHAVESH GONZALEZRICIA L LOOPER OPERATOR Ot 719.45 JOINT PAIN-PELVIS 01/25/2017 MORGAN GONZALEZIA L LOOPER OPERATOR Ot V15.88 HISTORY OF FALL 01/25/2017 GONZALEZ, JOSE RAUL L LOOPER OPERATOR Ot V58.69 OTH MED,LT,CURRENT USE 01/25/2017 JOSE RAUL GONZALEZ LOOPER OPERATOR Ot V58.83 ENCOUNTER FOR THERAPEUTIC DRUG MONITORIN 01/25/2017 Ot 607.84 IMPOTENCE, ORGANIC ORIGN 01/25/2017 Ot V58.69 OTH MED,LT, CURRENT USE 01/25/2017 STEPHANIE GONZALEZ DO Ot G40.909 EPILEPSY, UNSP, NOT INTRACTABLE, WITHOUT 01/25/2017 STEPHANIE GONZALEZ DO Ot I87.2 VENOUS INSUFFICIENCY (CHRONIC) (PERIPHER 01/25/2017 Ot 682.3 CELLULITIS OF ARM 01/25/2017 JOSE RAUL GONZALEZ LOOPER OPERATOR Ot V58.69 OTH MED,LT,CURRENT USE 01/25/2017 JOSE RAUL GONZALEZ LOOPER OPERATOR Ot V58.83 ENCOUNTER FOR THERAPEUTIC DRUG MONITORIN 01/25/2017 STEPHANIE GONZALEZ DO Ot G40.909 EPILEPSY, UNSP, NOT INTRACTABLE, WITHOUT 01/25/2017 STEPHANIE GONZALEZ DO Ot I87.2 VENOUS INSUFFICIENCY (CHRONIC) (PERIPHER 01/28/2017 BLADEANHO DPBERNY Burgess Ot F10.20 ALCOHOL DEPENDENCE, UNCOMPLICATED 01/28/2017 BLADEANHO DPBERNY Burgess Ot F12.90 CANNABIS USE, UNSPECIFIED, UNCOMPLICATED 01/28/2017 ZACHERYHO DPBERNY Burgess Ot F17.210 NICOTINE DEPENDENCE, CIGARETTES, UNCOMPL 01/28/2017 ZACHERYHO BERNY MENDOZA Ot G40.909 EPILEPSY, UNSP, NOT INTRACTABLE, WITHOUT 01/28/2017 ZACHERYHO DPBERNY Burgess Ot J44.9 CHRONIC OBSTRUCTIVE PULMONARY DISEASE, U 01/28/2017 ZACHERYHO DPBERNY Burgess Ot J90 PLEURAL EFFUSION, NOT ELSEWHERE CLASSIFI 01/28/2017 ZACHERYHO DPBERNY Burgess Ot J98.11 ATELECTASIS 01/28/2017 ZACHERYHO BERNY MENDOZA Ot R50.82 POSTPROCEDURAL FEVER 01/28/2017 BERNY LOPEZ DPM Ot S82.852A DISPLACED TRIMALLEOLAR FRACTURE OF LEFT 01/28/2017 ZACHERYHO DPBERNY Burgess Ot W19.XXXA UNSPECIFIED FALL, INITIAL ENCOUNTER 01/28/2017 BERNY LOPEZ DPM Ot Y92.[address] IN SINGLE-FAMILY (PRIVATE) HO 01/28/2017 BLANCHO DPM, BERNY Cosby Ot Y99.8 OTHER EXTERNAL CAUSE STATUS 01/28/2017 BLANCHO DPM, BERNY Cosby Ot 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 SUPERVISOR (CURRENT) USE OF ANTICOAGULANT 01/28/2017 FERNANDONCHO DPM, BERNY Cosby Ot Z86.718 PERSONAL HISTORY OF OTHER VENOUS THROMBO 01/28/2017 BLANCHO DPM, BERNY Cosby Ot Z91.81 HISTORY OF FALLING 01/28/2017 BLANCHO DPM, BERNY Cosby Ot Z95.5 PRESENCE OF CORONARY ANGIOPLASTY IMPLANT 06/09/2017 BLANCHO DPM, BERNY Cosby Ot S82.852S DISPLACED TRIMALLEOLAR FRACTURE OF LEFT 06/09/2017 BLANCHO DPM, BERNY Cosby Ot W19.XXXS UNSPECIFIED FALL, SEQUELA 06/10/2017 BLANCHO DPM, BERNY Cosby Ot S82.852S DISPLACED TRIMALLEOLAR FRACTURE OF LEFT 06/10/2017 BLANCHO DPM, BERNY Cosby Ot W19.XXXS UNSPECIFIED FALL, SEQUELA 06/30/2017 BLANCHO DPM, BERNY Cosby Ot S82.852S DISPLACED TRIMALLEOLAR FRACTURE OF LEFT 06/30/2017 BLANCHO DPM, BERNY Cosby Ot W19.XXXS UNSPECIFIED FALL, SEQUELA 04/25/2018 CORTES OLIVIER MD Ot Z53.9 PROCEDURE AND TREATMENT NOT CARRIED OUT, 04/25/2018 CORTES OLIVIER MD Ot Z79.01 CUSTODIAL (CURRENT) USE OF ANTICOAGULANT 04/26/2018 CORTES OLIVIER MD Ot Z53.9 PROCEDURE AND TREATMENT NOT CARRIED OUT, 04/26/2018 CORTES OLIVIER MD Ot Z79.01 CUSTODIAL (CURRENT) USE OF ANTICOAGULANT 05/03/2018 CORTES OLIVIER MD Ot Z01.818 ENCOUNTER FOR OTHER PREPROCEDURAL EXAMIN 05/04/2018 CORTES OLIVIER MD Ot Z01.818 ENCOUNTER FOR OTHER PREPROCEDURAL EXAMIN 05/11/2018 CORTES OLIVIER MD Ot D12.4 BENIGN NEOPLASM OF DESCENDING COLON 05/11/2018 CORTES OLIVIER MD Ot D12.8 BENIGN NEOPLASM OF RECTUM 05/11/2018 OLIVIER MD, CORTES M Ot F17.210 NICOTINE DEPENDENCE, CIGARETTES, UNCOMPL 05/11/2018 CORTES OLIVIER MD M Ot J44.9 CHRONIC OBSTRUCTIVE PULMONARY DISEASE, U 05/11/2018 CORTES OLIVIER MD M Ot K63.5 POLYP OF COLON 05/11/2018 CORTES OLIVIER MD M Ot Z12.11 ENCOUNTER FOR SCREENING FOR MALIGNANT NE 05/11/2018 CORTES OLIVIER MD M Ot Z80.0 FAMILY HISTORY OF MALIGNANT NEOPLASM OF 05/17/2018 CORTES OLIVIER MD M Ot D12.4 BENIGN NEOPLASM OF DESCENDING COLON 05/17/2018 CORTES OLIVIER MD M Ot D12.8 BENIGN NEOPLASM OF RECTUM 05/17/2018 CORTES OLIVIER MD M Ot F17.210 NICOTINE DEPENDENCE, CIGARETTES, UNCOMPL 05/17/2018 CORTES OLIVIER MD Ot J44.9 CHRONIC OBSTRUCTIVE PULMONARY DISEASE, U 05/17/2018 CORTES OLIVIER MD M Ot K63.5 POLYP OF COLON 05/17/2018 CORTES OLIVIER MD M Ot Z12.11 ENCOUNTER FOR SCREENING FOR MALIGNANT NE 05/17/2018 CORTES OLIVIER MD M Ot Z80.0 FAMILY HISTORY OF MALIGNANT NEOPLASM OF 05/25/2018 CORTES OLIVIER MD M Ot D12.4 BENIGN NEOPLASM OF DESCENDING COLON 05/25/2018 CORTES OLIVIER MD M Ot D12.8 BENIGN NEOPLASM OF RECTUM 05/25/2018 CORTES OLIVIER MD M Ot F17.210 NICOTINE DEPENDENCE, CIGARETTES, UNCOMPL 05/25/2018 CORTES OLIVIER MD Ot J44.9 CHRONIC OBSTRUCTIVE PULMONARY DISEASE, U 05/25/2018 CORTES OLIVIER MD M Ot K63.5 POLYP OF COLON 05/25/2018 CORTES OLIVIER MD M Ot Z12.11 ENCOUNTER FOR SCREENING FOR MALIGNANT NE 05/25/2018 CORTES OLIVIER MD M Ot Z80.0 FAMILY HISTORY OF MALIGNANT NEOPLASM OF 05/27/2018 CORTES OLIVIER MD M Ot D12.4 BENIGN NEOPLASM OF DESCENDING COLON 05/27/2018 CORTES OLIVIER MD M Ot D12.8 BENIGN NEOPLASM OF RECTUM 05/27/2018 CORTES OLIVIER MD M Ot F17.210 NICOTINE DEPENDENCE, CIGARETTES, UNCOMPL 05/27/2018 CORTES OLIVIER MD M Ot J44.9 CHRONIC OBSTRUCTIVE PULMONARY DISEASE, U 05/27/2018 CORTES OLIVIER MD Ot K63.5 POLYP OF COLON 05/27/2018 CORTES OLIVIER MD Ot Z12.11 ENCOUNTER FOR SCREENING FOR MALIGNANT NE 05/27/2018 CORTES OLIVIER MD Ot Z80.0 FAMILY HISTORY OF MALIGNANT NEOPLASM OF 02/06/2019 JOSE DE JESUS BLAIR MD Ot Z01.818 ENCOUNTER FOR OTHER PREPROCEDURAL EXAMIN 02/07/2019 JOSE DE JESUS BLAIR MD Ot Z01.818 ENCOUNTER FOR OTHER PREPROCEDURAL EXAMIN 02/07/2019 JOSE RAUL GONZALEZ LOOPER OPERATOR Ot 719.45 JOINT PAIN-PELVIS 02/07/2019 MORGAN GONZALEZIA Chris LOOPER OPERATOR Ot V15.88 HISTORY OF FALL 02/07/2019 BHAVESH GONZALEZRICIA L LOOPER OPERATOR Ot V58.69 OTH MED,LT,CURRENT USE 02/07/2019 MORGAN GONZALEZIA Chris LOOPER OPERATOR Ot V58.83 ENCOUNTER FOR THERAPEUTIC DRUG MONITORIN 02/07/2019 Ot 607.84 IMPOTENCE, ORGANIC ORIGN 02/07/2019 Ot V58.69 OTH MED,LT, CURRENT USE 02/07/2019 STEPHANIE GONZALEZ DO Ot G40.909 EPILEPSY, UNSP, NOT INTRACTABLE, WITHOUT 02/07/2019 STEPHANIE GONZALEZ DO Ot I87.2 VENOUS INSUFFICIENCY (CHRONIC) (PERIPHER 02/07/2019 SOY ARREOLA, CORTES Burgess Ot D12.4 BENIGN NEOPLASM OF DESCENDING COLON 02/07/2019 CORTES OLIVIER MD Ot D12.8 BENIGN NEOPLASM OF RECTUM 02/07/2019 SOY ARREOLA, CORTES Burgess Ot F17.210 NICOTINE DEPENDENCE, CIGARETTES, UNCOMPL 02/07/2019 SOY ARREOLA, CORTES Burgess Ot J44.9 CHRONIC OBSTRUCTIVE PULMONARY DISEASE, U 02/07/2019 CORTES OLIVIER MD Ot K63.5 POLYP OF COLON 02/07/2019 CORTES OLIVIER MD Ot Z12.11 ENCOUNTER FOR SCREENING FOR MALIGNANT NE 02/07/2019 CORTES OLIVIER MD Ot Z80.0 FAMILY HISTORY OF MALIGNANT NEOPLASM OF 02/07/2019 CORTSE OLIVIER MD Ot Z01.818 ENCOUNTER FOR OTHER PREPROCEDURAL EXAMIN Procedures Code Description [place] [address] EKG, TRACING 11/14/2013 09350 INR (IN HOUSE) 11/14/2013 39641 ROUTINE VENIPUNCTURE 11/16/2013 87688 ESR/SED RATE 11/16/2013 59163 CBC 11/16/2013 9342605 GFR CALC (RESULT ONLY) 11/16/2013 57393 CMP 11/16/2013 68084 LIPID PANEL 11/16/2013 42505 CARBAMAZAPINE (TEGRETOL) TOTAL 11/16/2013 30171 TSH 11/16/2013 [id number] REPOSITION LEFT TIBIA, OPEN APPROACH 01/27/2017 [id number] REPOSITION LEFT FIBULA WITH INT FIX, OPE 01/27/2017 Results Test Result Range Complete blood count (CBC) with automated white blood cell (WBC) differential - 01/25/17 12:35 Blood leukocytes automated count (number/volume) 5.7 10*3/uL 4.3-11.0 Blood erythrocytes automated count (number/volume) 4.46 10*6/uL 4.35-5.85 Venous blood hemoglobin measurement (mass/volume) 15.4 g/dL 13.3-17.7 Blood hematocrit (volume fraction) 44 % 40-54 Automated erythrocyte mean corpuscular volume 98 [foz_us] 80-99 Automated erythrocyte mean corpuscular hemoglobin (mass per erythrocyte) 35 pg 25-34 Automated erythrocyte mean corpuscular hemoglobin concentration measurement ( mass/volume) 35 g/dL 32-36 Automated erythrocyte distribution width ratio 12.5 % 10.0-14.5 Automated blood platelet count (count/volume) 176 10*3/uL 130-400 Automated blood platelet mean volume measurement 9.4 [foz_us] 7.4-10.4 Automated blood neutrophils/100 leukocytes 70 % 42-75 Automated blood lymphocytes/100 leukocytes 17 % 12-44 Blood monocytes/100 leukocytes 11 % 0-12 Automated blood eosinophils/100 leukocytes 2 % 0-10 Automated blood basophils/100 leukocytes 0 % 0-10 Blood neutrophils automated count (number/volume) 4.0 10*3 1.8-7.8 Blood lymphocytes automated count (number/volume) 1.0 10*3 1.0-4.0 Blood monocytes automated count (number/volume) 0.6 10*3 0.0-1.0 Automated eosinophil count 0.1 10*3/uL 0.0-0.3 Automated blood basophil count (count/volume) 0.0 10*3/uL 0.0-0.1 PT panel in platelet poor plasma by coagulation assay - 01/25/17 12:35 Prothrombin time (PT) in platelet poor plasma by coagulation assay 39.3 s 12.2-14.7 INR in platelet poor plasma or blood by coagulation assay 4.0 0.8-1.4 Activated partial thromboplastin time (aPTT) in platelet poor plasma bycoagulation assay - 01/25/17 12:35 Activated partial thromboplastin time (aPTT) in platelet poor plasma bycoagulation assay 45 s 24-35 Comprehensive metabolic panel - 01/25/17 12:35 Serum or plasma sodium measurement (moles/volume) 141 mmol/L 135-145 Serum or plasma potassium measurement (moles/volume) 4.6 mmol/L 3.6-5.0 Serum or plasma chloride measurement (moles/volume) 104 mmol/L 98-107 Carbon dioxide 25 mmol/L 21-32 Serum or plasma anion gap determination (moles/volume) 12 mmol/L 5-14 Serum or plasma urea nitrogen measurement (mass/volume) 16 mg/dL 7-18 Serum or plasma creatinine measurement (mass/volume) 0.82 mg/dL 0.60-1.30 Serum or plasma urea nitrogen/creatinine mass ratio 20 NRG Serum or plasma creatinine measurement with calculation of estimated glomerular filtration rate > NRG Serum or plasma glucose measurement (mass/volume) 94 mg/dL 70-105 Serum or plasma calcium measurement (mass/volume) 8.6 mg/dL 8.5-10.1 Serum or plasma total bilirubin measurement (mass/volume) 0.3 mg/dL 0.1-1.0 Serum or plasma alkaline phosphatase measurement (enzymatic activity/volume) 61 U/L 40-136 Serum or plasma aspartate aminotransferase measurement (enzymatic activity/ volume) 38 U/L 5-34 Serum or plasma alanine aminotransferase measurement (enzymatic activity/volume ) 37 U/L 0-55 Serum or plasma protein measurement (mass/volume) 7.0 g/dL 6.4-8.2 Serum or plasma albumin measurement (mass/volume) 3.9 g/dL 3.2-4.5 Magnesium - 01/25/17 12:35 Magnesium 2.1 mg/dL 1.8-2.4 Serum or plasma carbamazepine measurement (mass/volume) - 01/25/17 12:35 Serum or plasma carbamazepine measurement (mass/volume) 10.1 ug/mL 4.0-12.0 Serum or plasma ethanol measurement (mass/volume) - 01/25/17 12:35 Serum or plasma ethanol measurement (mass/volume) 85 mg/dL <10 Urine drug screening test - 01/25/17 20:40 Urine phencyclidine detection by screening method NEGATIVE NEGATIVE Urine benzodiazepines detection by screening method NEGATIVE NEGATIVE Urine cocaine detection NEGATIVE NEGATIVE Urine amphetamines detection by screening method NEGATIVE NEGATIVE Urine methamphetamine detection by screening method NEGATIVE NEGATIVE Urine cannabinoids detection by screening method POSITIVE NEGATIVE Urine opiates detection by screening method POSITIVE NEGATIVE Urine barbiturates detection NEGATIVE NEGATIVE Screening urine tricyclic antidepressants detection NEGATIVE NEGATIVE Urine methadone detection by screening method NEGATIVE NEGATIVE Urine oxycodone detection POSITIVE NEGATIVE Urine propoxyphene detection NEGATIVE NEGATIVE PT panel in platelet poor plasma by coagulation assay - 01/26/17 04:50 Prothrombin time (PT) in platelet poor plasma by coagulation assay 19.3 s 12.2-14.7 INR in platelet poor plasma or blood by coagulation assay 1.7 0.8-1.4 Methicillin resistant Staphylococcus aureus (MRSA) screening culture - 20:10 Methicillin resistant Staphylococcus aureus (MRSA) screening culture NEG NRG PT panel in platelet poor plasma by coagulation assay - 01/27/17 05:05 Prothrombin time (PT) in platelet poor plasma by coagulation assay 14.1 s 12.2-14.7 INR in platelet poor plasma or blood by coagulation assay 1.1 0.8-1.4 Complete blood count (CBC) with automated white blood cell (WBC) differential - 01/28/17 04:44 Blood leukocytes automated count (number/volume) 6.1 10*3/uL 4.3-11.0 Blood erythrocytes automated count (number/volume) 3.67 10*6/uL 4.35-5.85 Venous blood hemoglobin measurement (mass/volume) 12.6 g/dL 13.3-17.7 Blood hematocrit (volume fraction) 38 % 40-54 Automated erythrocyte mean corpuscular volume 103 [foz_us] 80-99 Automated erythrocyte mean corpuscular hemoglobin (mass per erythrocyte) 34 pg 25-34 Automated erythrocyte mean corpuscular hemoglobin concentration measurement ( mass/volume) 34 g/dL 32-36 Automated erythrocyte distribution width ratio 11.8 % 10.0-14.5 Automated blood platelet count (count/volume) 148 10*3/uL 130-400 Automated blood platelet mean volume measurement 9.8 [foz_us] 7.4-10.4 Automated blood neutrophils/100 leukocytes 71 % 42-75 Automated blood lymphocytes/100 leukocytes 14 % 12-44 Blood monocytes/100 leukocytes 14 % 0-12 Automated blood eosinophils/100 leukocytes 1 % 0-10 Automated blood basophils/100 leukocytes 0 % 0-10 Blood neutrophils automated count (number/volume) 4.3 10*3 1.8-7.8 Blood lymphocytes automated count (number/volume) 0.9 10*3 1.0-4.0 Blood monocytes automated count (number/volume) 0.9 10*3 0.0-1.0 Automated eosinophil count 0.1 10*3/uL 0.0-0.3 Automated blood basophil count (count/volume) 0.0 10*3/uL 0.0-0.1 PT panel in platelet poor plasma by coagulation assay - 01/28/17 04:44 Prothrombin time (PT) in platelet poor plasma by coagulation assay 13.8 s 12.2-14.7 INR in platelet poor plasma or blood by coagulation assay 1.1 0.8-1.4 Comprehensive metabolic panel - 01/28/17 04:44 Serum or plasma sodium measurement (moles/volume) 138 mmol/L 135-145 Serum or plasma potassium measurement (moles/volume) 3.9 mmol/L 3.6-5.0 Serum or plasma chloride measurement (moles/volume) 103 mmol/L 98-107 Carbon dioxide 23 mmol/L 21-32 Serum or plasma anion gap determination (moles/volume) 12 mmol/L 5-14 Serum or plasma urea nitrogen measurement (mass/volume) 9 mg/dL 7-18 Serum or plasma creatinine measurement (mass/volume) 0.77 mg/dL 0.60-1.30 Serum or plasma urea nitrogen/creatinine mass ratio 12 NRG Serum or plasma creatinine measurement with calculation of estimated glomerular filtration rate > NRG Serum or plasma glucose measurement (mass/volume) 95 mg/dL 70-105 Serum or plasma calcium measurement (mass/volume) 8.0 mg/dL 8.5-10.1 Serum or plasma total bilirubin measurement (mass/volume) 0.4 mg/dL 0.1-1.0 Serum or plasma alkaline phosphatase measurement (enzymatic activity/volume) 50 U/L 40-136 Serum or plasma aspartate aminotransferase measurement (enzymatic activity/ volume) 22 U/L 5-34 Serum or plasma alanine aminotransferase measurement (enzymatic activity/volume ) 20 U/L 0-55 Serum or plasma protein measurement (mass/volume) 5.9 g/dL 6.4-8.2 Serum or plasma albumin measurement (mass/volume) 3.1 g/dL 3.2-4.5 PT panel in platelet poor plasma by coagulation assay - 04/25/18 13:27 Prothrombin time (PT) in platelet poor plasma by coagulation assay 34.1 s 12.2-14.7 INR in platelet poor plasma or blood by coagulation assay 3.3 0.8-1.4 Encounters ACCT No. Visit Date/Time Discharge Status Pt. Type Provider Facility Loc./Unit Complaint [id number] 11/16/2013 08:18:00 11/16/2013 23:59:59 CLS Outpatient AMALIA WILKS APRN [id number] 05/10/2013 07:32:00 Document Registration [id number] 02/06/2019 05:59:00 02/06/2019 10:54:00 DIS Outpatient JOSE DE JESUS BLAIR MD [facility] PREOP CATARACT RIGHT EYE [id number] 05/09/2018 11:08:00 05/09/2018 23:59:59 CLS Outpatient CORTES OLIVIER MD [facility] ENDO SCREENING [id number] 05/04/2018 09:30:00 05/04/2018 23:59:59 CLS Outpatient CORTES OLIVIER MD [facility] PREOP COLONOSCOPY [id number] 04/25/2018 12:30:00 04/25/2018 14:05:00 DIS Outpatient CORTES OLIVIER MD [facility] ENDO SCREENING [id number] 06/30/2017 11:01:00 06/30/2017 11:34:00 DIS Outpatient BERNY LOPEZ DPM [facility] REHAB S/P ORIF L ANKLE FX [id number] 01/25/2017 14:53:00 01/28/2017 12:01:00 DIS Inpatient BLANCHO DPMBERNY [facility] 4TH TRIMALLEOLAR FX L ANKLE [id number] 03/30/2016 00:08:00 03/30/2016 23:59:59 CLS Preadmit LISA STEPHANIE SANCHEZ Tito [facility] LAB EPILEPSY [id number] 03/12/2016 14:00:00 03/29/2016 00:01:00 DIS Outpatient LISA SANCHEZSTEPHANIE [facility] LAB EPILEPSY [id number] 06/14/2015 00:10:00 06/14/2015 23:59:59 CLS Preadmit JOSE RAUL GONZALEZ LOOPER OPERATOR [facility] LAB MED AT RISK [id number] 03/28/2015 12:57:00 06/13/2015 00:01:00 DIS Outpatient JOSE RAUL GONZALEZ LOOPER OPERATOR [facility] LAB MED AT RISK [id number] 05/11/2014 11:35:00 05/11/2014 14:27:00 DIS Emergency KWAME ARREOLA, DARRON Olivo [facility] ER HEAD LAC [id number] 04/17/2014 08:57:00 04/17/2014 23:59:59 CLS Outpatient JOSE RAUL GONZALEZ LOOPER OPERATOR [facility] RAD RIGHT HIP PAIN [id number] 03/19/2014 18:20:00 03/21/2014 10:10:00 DIS Inpatient LISA SANCHEZ STEPHANIE Tito [facility] 4TH PERFORATED DIVERTICULA, PNEUMOPERITENEUM [id number] 02/08/2019 09:28:00 ACT Outpatient JOSE DE JESUS BLAIR MD [facility] SDC CATARACT RIGHT EYE [id number] 07/01/2015 10:18:00 Document Registration [id number] 02/15/2015 13:11:00 Document Registration [id number] 09/19/2012 11:48:00 Document Registration [id number] 09/12/2012 17:35:00 Document Registration [id number] 09/11/2012 10:18:00 Document Registration [id number] 04/05/2011 14:45:00 Document Registration [id number] 02/09/2011 13:12:00 Document Registration [id number] 09/25/2010 13:10:00 Document Registration
[2019-02-08] MEDS ORDERED: acetaZOLAMIDE ER 500 MG CAP (DIAMOX SEQUELS) PO ONE (11:00)
[2019-02-08] MEDS ORDERED: MIDAZOLAM 2 MG/2 ML (VERSED) VIAL ONE (11:13)
--- NOTE | 2019-02-08 11:15 | Ophthalmologist Pre-Op Note ---
Pre-Operative Progress Note H&P Reviewed The H&P was reviewed, patient examined and no changes noted. Date H&P Reviewed: Feb 08, 2019 Time H&P Reviewed: 10:50 Pre-Op Dx Cataract, Right Eye JOSE DE JESUS BLAIR MD Feb 08, 2019 11:15
--- NOTE | 2019-02-08 11:16 | Ophthalmology Operative Report ---
Cataract removal/placement IOL PREOPERATIVE DIAGNOSIS: Cataract Right Eye POSTOPERATIVE DIAGNOSIS: Cataract Right Eye PROCEDURE: Cataract removal and placement of posterior chamber implant, right eye SURGEON: Doroteo Blair ANESTHESIA: Topical with sedation COMPLICATIONS: None ESTIMATED BLOOD LOSS: Minimal DESCRIPTION OF PROCEDURE: After proper informed consent was obtained, the patient, a 53 male, was taken to the Operating Room and the right eye was anesthetized with tetracaine. The right eye was then prepped and draped in the usual manner. A wire lid speculum was placed. A paracentesis was made at the left hand position. Preservative free lidocaine was injected into the anterior chamber followed by viscoelastic. A clear corneal incision was made in the temporal position. A capsulorrhexis was preformed and the central nuclear and cortical material were removed. The posterior capsule was polished and Alexis 19.0 [id number] IOL was placed into the capsular bag. The residual viscoelastic was aspirated and balanced saline solution was injected into the anterior chamber. Moxifloxacin was injected into the anterior chamber. The wound was checked and found to be water tight. The patient tolerated the procedure well without complications. DOORTEO BLAIR MD Feb 08, 2019 11:16
[2019-02-08 11:23] VITALS: BP 129/79
--- NOTE | 2019-02-08 13:10 | Anesthesia-General Post-Op ---
MAC Patient Condition Mental Status/LOC: Same as Preop Cardiovascular: Satisfactory Nausea/Vomiting: Absent Respiratory: Satisfactory Pain: Controlled Complications: Absent Post Op Complications Complications None Follow Up Care/Instructions Patient Instructions None needed. Anesthesiology Discharge Order Discharge Order Patient is doing well, no complaints, stable vital signs, no apparent adverse anesthesia problems. No complications reported per nursing. ZION MOTLEY CRNA Feb 08, 2019 13:10
== END 2019-02-08 11:23 | disposition home or self-care (01) ==
LOC: SDC 09:28
PROVIDERS: ATTEND Specialist
DX: H25.11 Age-related nuclear cataract, right eye (principal); I10 Essential (primary) hypertension; I25.10 Atherosclerotic heart disease of native coronary artery without angina pectoris; G40.909 Epilepsy, unspecified, not intractable, without status epilepticus; F17.290 Nicotine dependence, other tobacco product, uncomplicated; Z86.718 Personal history of other venous thrombosis and embolism; Z95.5 Presence of coronary angioplasty implant and graft; Z79.899 Other long term (current) drug therapy; Z79.01 Long term (current) use of anticoagulants

== ENCOUNTER 2020-08-18 22:00 | Emergency (ER) | payer MEDICAID ==
[~2020-08-18] VITALS: Ht 177.8 cm; Wt 90.7 kg
[~2020-08-18 22:00] MED LIST changes: -OXYC-465 PO; +OXYC-556 PO; -WARF10TA44 PO
[2020-08-18] MEDS ORDERED: CEFEPIME INJECTION 1,000 MG in WATER (STERILE) FOR INJECTION 10 ML IV ONE (22:30)
[2020-08-18] MEDS ORDERED: LACTATED RINGERS 2,500 ML IV PRN (22:30)
[2020-08-18] MEDS ORDERED: VANCOMYCIN INJECTION 1,000 MG in NS (IVPB) 250 ML IV ONE (22:30)
[2020-08-18] MEDS ORDERED: ONDANSETRON 4 MG/2 ML (SDV) Z0FRAN IV PRN (22:30)
[2020-08-18] MEDS ORDERED: fentaNYL INJECTION 100 MCG/2 ML AMP IVP ONE (22:30)
--- NOTE | 2020-08-18 22:39 | ED Syncope ---
General Chief Complaint: Dizziness/Syncope Stated Complaint: SYNCOPE Nursing Triage Note: PT TO ROOM 01 WITH C/O SYNCOPE. PT REPORTS FALLING A COUPLE DAYS AGO AND HAS A LARGE HEMATOMA ON UPPER RIGHT THIGH. 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 Source of Information: Patient Exam Limitations: No Limitations History of Present Illness Date Seen by Provider: Aug 18, 2020 Time Seen by Provider: 22:19 Initial Comments the patient presents to the ER by EMS from home with chief complaint he had a near syncopal episode falling he does not think he struck his head nor loss complete consciousness. He says he does remember his being right there. He has had some fevers and chills subjectively today. He's had no cough but he does have some shortness of air. He also had a fall a couple days ago with some pain in his right hip but did not get checked out. This morning he started having a tremendous amount of swelling and pain in his right hip and took a hydrocodone with the last dose being about 4 hours prior to arrival. He does not feel his pain is under control. EMS noted him to be tachycardic and with low blood pressure 90s over 60. He's not had a productive cough dysuria diarrhea constipation loss of sense of taste or smell. No sick contacts that he is aware of. He is on warfarin and has a history of TIA. EMS initiated 1 L of normal saline. Allergies and Home Medications Allergies Coded Allergies: No Known Drug Allergies (Verified , 01/25/17) Home Medications Carbamazepine 200 Mg Tablet, 600 MG PO BID, (Reported) TAKES 3 (200 MG) TABLETS Carvedilol 12.5 Mg Tablet, 12.5 MG PO BID, (Reported) Warfarin Sodium 10 Mg Tablet, 15 MG PO SuSa, (Reported) TAKES 1 & 1/2 OF A (10 MG) TABLET Warfarin Sodium 10 Mg Tablet, 20 MG PO MoTuWeThFr, (Reported) Patient Home Medication List Home Medication List Reviewed: Yes Review of Systems Constitutional: chills; No diaphoresis; fever, malaise EENTM: No ear discharge, No ear pain Respiratory: No cough; short of breath Cardiovascular: No Hx of Intervention, No palpitations Gastrointestinal: No abdominal pain, No constipation, No diarrhea; nausea; No vomiting Genitourinary: No discharge, No dysuria Musculoskeletal: No back pain, No joint pain All Other Systems Reviewed Negative Unless Noted: Yes Past Keinqlx-Ttnemg-Fgpdjy Hx Patient Social History Alcohol Use: Regular Use Number of Drinks Today: AA Alcohol Beverage of Choice: Beer Recreational Drug Use: No Smoking Status: Current Everyday Smoker Type Used: Cigarettes 2nd Hand Smoke Exposure: No Recent Foreign Travel: No Contact w/Someone Who Travel: No Recent Infectious Disease Expo: No Recent Hopitalizations: No (BROKEN FEMUR AND BROKEN HIP, 2007 DVT) Physical Abuse: No Sexual Abuse: No Mistreated: No Fear: No Immunizations Up To Date Tetanus Booster (TDap): Unknown Seasonal Allergies Seasonal Allergies: No Past Medical History Surgeries: Yes (BROKEN R FEMUR AND BROKEN R HIP) Respiratory: Yes (gets SOB-?COPD) Currently Using CPAP: No Currently Using BIPAP: No Cardiac: Yes Deep Vein Thrombosis, Hypertension Neurological: Yes Reproductive Disorders: No Genitourinary: No Gastrointestinal: No Musculoskeletal: Yes (per pt "fused" rt hip) Fractures Endocrine: No Cataract Hearing Impairment: Denies Cancer: No Psychosocial: No Integumentary: No Blood Disorders: No Family Medical History Cancer G8 SISTER, Onset:40's - 50 Chest pain 19 MOTHER, Onset:60 years & older Family history: Cardiovascular disease 19 MOTHER, Onset:60 years & older Family history: Diabetes mellitus 19 FATHER, Onset:20's - 25 Family history: Hypertension 19 MOTHER, Onset:40's - 50 Physical Exam Vital Signs Vital Signs - First Documented 08/18/20 08/19/20 22:08 06:21 Temp 36.4 Pulse 113 Resp 16 B/P (MAP) 102/91 (95) Pulse Ox 97 O2 Delivery Room Air Capillary Refill : Less Than 3 Seconds Height, Weight, BMI Height: 5'10.00" Weight: 192lbs. 0.0oz. [id number]; 28.00 BMI Method:Estimated General Appearance: No Apparent Distress, WD/WN HEENT: PERRL/EOMI; No Pharynx Normal, No Moist Mucous Membranes Neck: Full Range of Motion, Supple Cardiovascular: Regular Rate, Rhythm, Normal Peripheral Pulses, Other (right dorsal pedal and posterior tibial are faintly dopplerable compared to left which is 1 out of 4 palpable. Capillary refill is less than 3 seconds.) Respiratory: Lungs Clear, Normal Breath Sounds, No Accessory Muscle Use, No Respiratory Distress, Decreased Breath Sounds Gastrointestinal: Normal Bowel Sounds, No Organomegaly, Non Tender, Soft Extremities: Normal Capillary Refill, Normal Inspection, Other (right proximal thigh has ecchymoses swelling and tautness to touch. Bilateral feet equally cool to touch) Neurologic/Psychiatric: Alert, Oriented x3, No Motor/Sensory Deficits, Normal Mood/Affect, fitter type bar and segment II-XII Norm as Tested Cranial Nerves: Normal Hearing, Normal Speech, PERRL Motor/Sensory: No Motor Deficit, No Sensory Deficit, No Pronator Drift Skin: Cool, Other (chronic hemosiderin staining bilateral lower extremities.) Focused Exam Lactate Level 08/18/20 23:15: Lactic Acid Level 3.83*H 08/19/20 01:35: Lactic Acid Level 3.85*H 08/19/20 04:30: Lactic Acid Level 2.32*H Lactic Acid Level Laboratory Tests Test 08/18/20 23:15 08/19/20 01:35 08/19/20 04:30 Lactic Acid Level 3.83 MMOL/L (0.50-2.00) *H 3.85 MMOL/L (0.50-2.00) *H 2.32 MMOL/L (0.50-2.00) *H Procedures/Interventions Patient Education: Explained Benefits, Pt. Ack. Understanding Breath Sounds per Auscultation: Clear Heart Sounds per Auscultation: Regular Airway Exam: Mouth opens >2 fingers, Neck Full Range of Motion, Visulation of Uvula Sedation Adminstration Time: 1345 Progress/Results/Core Measures Results/Orders Lab Results Laboratory Tests Test 08/18/20 22:06 08/18/20 23:15 08/19/20 01:35 08/19/20 01:49 Range/Units White Blood Count 7.3 4.3-11.0 10^3/uL Red Blood Count 3.26 L 4.30-5.52 10^6/uL Hemoglobin 11.4 L 13.3-17.7 g/dL Hematocrit 34 L 40-54 % Mean Corpuscular Volume 105 H 80-99 fL Mean Corpuscular Hemoglobin 35 H 25-34 pg Mean Corpuscular Hemoglobin Concent 33 32-36 g/dL Red Cell Distribution Width 12.8 10.0-14.5 % Platelet Count 207 130-400 10^3/uL Mean Platelet Volume 10.7 9.0-12.2 fL Immature Granulocyte % (Auto) 1 % Neutrophils (%) (Auto) 63 42-75 % Lymphocytes (%) (Auto) 25 12-44 % Monocytes (%) (Auto) 11 0-12 % Eosinophils (%) (Auto) 1 0-10 % Basophils (%) (Auto) 0 0-10 % Neutrophils # (Auto) 4.6 1.8-7.8 10^3/uL Lymphocytes # (Auto) 1.8 1.0-4.0 10^3/uL Monocytes # (Auto) 0.8 0.0-1.0 10^3/uL Eosinophils # (Auto) 0.0 0.0-0.3 10^3/uL Basophils # (Auto) 0.0 0.0-0.1 10^3/uL Immature Granulocyte # (Auto) 0.0 0.0-0.1 10^3/uL Prothrombin Time 58.9 *H 12.2-14.7 SEC INR Comment 6.8 *H 0.8-1.4 Activated Partial Thromboplast Time 71 H 24-35 SEC Sodium Level 133 L 135-145 MMOL/L Potassium Level 4.5 3.6-5.0 MMOL/L Chloride Level 99 98-107 MMOL/L Carbon Dioxide Level 16 L 21-32 MMOL/L Anion Gap 18 H 5-14 MMOL/L Blood Urea Nitrogen 12 7-18 MG/DL Creatinine 1.18 0.60-1.30 MG/DL Estimat Glomerular Filtration Rate > 60 BUN/Creatinine Ratio 10 Glucose Level 195 H 70-105 MG/DL Calcium Level 8.0 L 8.5-10.1 MG/DL Corrected Calcium 8.6 8.5-10.1 MG/DL Total Bilirubin 0.6 0.1-1.0 MG/DL Aspartate Amino Transf (AST/SGOT) 30 5-34 U/L Alanine Aminotransferase (ALT/SGPT) 26 0-55 U/L Alkaline Phosphatase 68 40-136 U/L Troponin I < 0.028 <0.028 NG/ML C-Reactive Protein High Sensitivity 4.55 H 0.00-0.50 MG/DL Total Protein 6.0 L 6.4-8.2 GM/DL Albumin 3.3 3.2-4.5 GM/DL Procalcitonin 0.04 <0.10 NG/ML Lactic Acid Level 3.83 *H 3.85 *H 0.50-2.00 MMOL/L Coronavirus 2019 (TIM) Negative Negative Test 08/19/20 02:14 08/19/20 04:30 Range/Units Urine Color RIKI H Urine Clarity CLOUDY Urine pH 5.0 5-9 Urine Specific Bracey >=1.030 1.016-1.022 Urine Protein 1+ H NEGATIVE Urine Glucose (UA) NEGATIVE NEGATIVE Urine Ketones TRACE H NEGATIVE Urine Nitrite NEGATIVE NEGATIVE Urine Bilirubin 1+ H NEGATIVE Urine Urobilinogen 0.2 < = 1.0 MG/DL Urine Leukocyte Esterase NEGATIVE NEGATIVE Urine RBC (Auto) NEGATIVE NEGATIVE Urine RBC NONE /HPF Urine WBC NONE /HPF Urine Squamous Epithelial Cells 2-5 /HPF Urine Crystals NONE /LPF Urine Bacteria TRACE /HPF Urine Casts PRESENT /LPF Urine Hyaline Casts 2-5 H /LPF Urine Granular Casts 5-10 H /LPF Urine Mucus LARGE H /LPF Urine Culture Indicated CULTURE PENDING Lactic Acid Level 2.32 *H 0.50-2.00 MMOL/L Micro Results Microbiology 08/19/20 Influenza Types A,B Antigen (AMAN) - Final, Complete My Orders Orders - LAINE THAYER Cbc With Automated Diff (08/18/20 22:28) Comprehensive Metabolic Panel (08/18/20 22:28) Blood Culture (08/18/20 22:28) Sputum Culture (08/18/20 22:28) Urinalysis (08/18/20 22:28) Urine Culture (08/18/20 22:28) Protime With Inr (08/18/20 22:28) Partial Thromboplastin Time (08/18/20 22:28) Ed Iv/Invasive Line Start (08/18/20 22:28) Ed Iv/Invasive Line Start (08/18/20 22:28) Ekg Tracing (08/18/20 22:28) Troponin I (08/18/20 22:28) Vital Signs Adult Sepsis Patie Q15M (08/18/20 22:28) Ondansetron Injection (Zofran Injectio (08/18/20 22:30) O2 (08/18/20 22:28) Remove Rings In Anticipation O (08/18/20 22:28) Lactic Acid Analyzer (08/18/20 22:28) Influenza A And B Antigens (08/18/20 22:28) Cefepime Injection (Maxipime Injection) (08/18/20 22:30) Vancomycin Injection (Vancomycin Injecti (08/18/20 22:30) Vancomycin Injection (Vancomycin Injecti (08/18/20 23:30) Ed Iv/Invasive Line Start (08/18/20 22:28) Fentanyl Injection (Sublimaze Injection (08/18/20 22:30) Covid 19 Inhouse Test (08/18/20 22:41) Hs C Reactive Protein (08/18/20 22:41) Procalcitonin (Pct) (08/18/20 22:41) Lactated Ringers (Lr 1000 Ml Iv Solution (08/18/20 22:41) Ed Iv/Invasive Line Start (08/18/20 22:41) Ns Iv 500 Ml (Sodium Chloride 0.9%) (08/18/20 22:41) Phytonadione Oral Solution (Mephyton Ora (08/18/20 23:30) Ct Head/Cervical Spine Wo (08/19/20 00:01) Chest 1 View, Ap/Pa Only (08/19/20 00:01) Pelvis With Right Hip 2-3views (08/19/20 00:01) Lactated Ringers (Lr 1000 Ml Iv Solution (08/19/20 01:45) Phytonadione Oral Solution (Mephyton Ora (08/19/20 01:40) Coronavirus Sars-Cov-2 So 2018 (08/19/20 02:20) Hydrocodone/Apap 5/325 Tablet (Lortab 5 (08/19/20 03:15) Fentanyl Injection (Sublimaze Injection (08/19/20 04:00) Ketamine Syringe (Ed Only) (Ketamine Syr (08/19/20 04:30) Hemoglobin And Hematocrit (08/19/20 04:40) Ed Iv/Invasive Line Start (08/19/20 05:03) Ns Iv 1000 Ml (Sodium Chloride 0.9%) (08/19/20 05:03) Phytonadione (Adult) Injection (Aquameph (08/19/20 05:15) Ondansetron Injection (Zofran Injectio (08/19/20 05:15) Human Prothrombin Complx(Pcc) (Kcentra K (08/19/20 05:30) Medications Given in ED Current Medications Medications Dose Ordered Sig/Ivone Route Start Time Stop Time Status Last Admin Dose Admin Acetaminophen/ Hydrocodone Bitart 1 tab ONCE ONCE PO 08/19/20 03:15 08/19/20 03:16 DC 08/19/20 03:12 1 TAB Cefepime HCl 1000 mg/Sterile Water 10 ml @ 200 mls/hr ONCE ONCE IV 08/18/20 22:30 08/18/20 22:34 DC 08/18/20 23:11 200 MLS/HR Fentanyl Citrate 25 mcg ONCE ONCE IVP 08/18/20 22:30 08/18/20 22:34 DC 08/18/20 23:10 25 MCG Fentanyl Citrate 50 mcg ONCE ONCE IVP 08/19/20 04:00 08/19/20 04:01 DC 08/19/20 04:19 50 MCG Ketamine HCl 25 mg ONCE ONCE IV 08/19/20 04:30 08/19/20 04:31 WI 08/19/20 04:56 25 MG Ondansetron HCl 4 mg PRN PRN IV 08/18/20 22:30 08/18/20 23:11 DC 08/18/20 23:10 4 MG Ondansetron HCl 8 mg ONCE ONCE IVP 08/19/20 05:15 08/19/20 05:16 WI 08/19/20 05:41 8 MG Phytonadione 2.5 mg ONCE ONCE IM 08/19/20 05:15 08/19/20 05:16 WI 08/19/20 05:40 2.5 MG Phytonadione 2.5 mg ONCE ONCE PO 08/18/20 23:30 08/18/20 23:31 DC 08/19/20 01:48 2.5 MG Prothrombin Complex Concent (Human) 3,000 unit ONCE ONCE IV 08/19/20 05:30 08/19/20 05:31 DC 08/19/20 05:57 3,000 UNIT Sodium Chloride 500 ml @ 0 mls/hr Q0M ONCE IV 08/18/20 22:41 08/18/20 22:44 DC 08/18/20 23:12 999 MLS/HR Vancomycin HCl 750 mg/Sodium Chloride 250 ml @ 250 mls/hr ONCE ONCE IV 10/4/20 23:30 08/19/20 00:29 DC 08/18/20 23:11 250 MLS/HR Vancomycin HCl 1000 mg/Sodium Chloride 250 ml @ 250 mls/hr ONCE ONCE IV 08/18/20 22:30 08/18/20 23:29 DC 08/18/20 23:10 250 MLS/HR Vital Signs/I&O 08/18/20 08/19/20 22:08 06:21 Temp 36.4 Pulse 113 112 Resp 16 17 B/P (MAP) 102/91 (95) 106/72 Pulse Ox 97 O2 Delivery Room Air Room Air 08/19/20 00:00 Intake Total 710 ml Balance 710 ml Blood Pressure Mean: 95 Progress Progress Note #1: Time: 22:38 Progress Note The patient has subjective fevers and chills but is 35C. Tachycardic, sinus with hypotension. My concern would be for infection first. We also are concerned about the circulation to his right lower extremity given the warfarin and significant swelling and tautness of the soft tissue. He does have dopplerable pulse and will improve his blood pressure and reexamine that serially. COVID 19 and influenza swabs. He has received 1 L of saline and were going to give him 1- 1/2 more liters for a total of 2.5 years or 30 mL/kg. Broad-spectrum antibiotic coverage with Zosyn and vancomycin. Septic workup. Neurologically he is intact. NIH score of 0 points. We'll get an EKG, troponin and a CT of the head since he did have a fall including his C-spine without IV contrast. Plan to image for occult fracture of the right hip and pelvis. 25 g IV fentanyl to address his pain. We may use ketamine if her not getting good control and he maintains low blood pressure. Warm blankets and heated fluids. Progress Note #2: Time: 01:18 Progress Note We did give oral vitamin K to start reversal process and she does have all the hematoma and swelling in his right thigh. His blood pressure significantly improved after IV fluids spinning around 105 -120 systolic. We are hesitant to initiate a central line unless absolutely necessary because of his supratherapeutic INR. He is sitting up mentating well. CT of the head does not demonstrate any significant bleeding. Plan to allow him to start some sips and ice chips. Progress Note #3: Time: 03:30 Progress Note On reexamination the patient he still having significant pain despite the hydrocodone. Be given 50 mg of fentanyl. A decent blood pressure 105 systolic. We'll continue IV fluids. He is not requiring any pressors. He does have extension of the swelling in his right thigh. It is more tense than when he arrived. Using a Doppler we can still obtain a dorsal pedal right sided/ipsilateral pulse. He is not having any numbness or tingling yet. I am suspicious that he might be developing a department syndrome and that is why his lactate is not going away. We have attempted to look at [place], [place], and and they all are on diversion until after discharges in the morning. At that time we will have an orthopedic surgeon here. We also are going to have a challenge transporting him as none of the local EMSs are available for transport. It may be reasonable just keep him here in the ER comfortable as long he has a pulse available. Progress Note #4: Time: 05:06 Progress Note Pressures are little soft and lactate is not closing I suspect because of the left right lower extremity. We have not identified an infectious source. Give him another bag of fluids and repeat lactic acid. We have attempted [facility] but they're not to have any beds available so after they do dismissal's in the morning. We are calling [place], [place] as well as [facility] in [place]. Were trying to avoid using pressors as this may compromise right lower extremity blood flow. He still has a good dopplerable pulse at this time. Foot is not any more discolored than the contralateral side. We are going to give him a 25 mg bolus of ketamine to help with pain as well as perhaps support the blood pressure. Transportation has been very difficult because local EMS truck down and we had great difficulty getting the last patient transported to [place]. We will probably have to fly this patient. Discussed the case with the trauma surgeon on-call, Dr. Enriquez and he agrees with prompt transported this patient for limb at risk. Progress Note #5: Time: 06:30 Progress Note 3000 mg Kacentra Given. Patient still has a dopplerable right sided dorsal pedal pulse. 1+ out of 4 pal pable pulse on the left foot. Initial ECG Impression Date: Aug 18, 2020 Initial ECG Impression Time: 22:06 Initial ECG Rate: 115 Initial ECG Rhythm: S.Tach Initial ECG Intervals: Normal Initial ECG Impression: Normal Comment Sinus tachycardia without clinically relevant ST elevation or depression. Diagnostic Imaging Diagonstic Imaging: CT Plain Films/CT/US/NM/MRI: c-spine, head Comments No acute intracranial hemorrhage, mass effect, midline shift or tumor. No calvarial fracture. No traumatic malalignment of the cervical spine or acute fracture. Reviewed: Reviewed [place] Study, Reviewed by Me Diagonstic Imaging: Xray Plain Films/CT/US/NM/MRI: chest Comments Chest x-ray has unchanged appearance from previous x-rays. No acute cardiopulmonary process. Reviewed: Reviewed by Me Diagonstic Imaging: Xray Plain Films/CT/US/NM/MRI: pelvis, hip (right) Comments No fracture. Hardware appears to be in good position. Reviewed: Reviewed by Me Departure Impression Primary Impression: Compartment syndrome of right lower extremity Qualified Codes: T79.A21A - Traumatic compartment syndrome of right lower extremity, initial encounter Additional Impressions: Supratherapeutic INR Shock Disposition: XF SHT-TRM HOSP Condition: Critical Transfer Transfer Reason: Exceeds level of care (no orthopedic surgery available) Time Spoke to Accepting Phy: 05:15 Transfer Progress Notes 0330: Norbert and jessy are both on diversion at [facility]. Jessy Velázquez is on diversion and may have some [facility] beds after discharges in the morning. 0340: [facility] is on diversion and may be able to have beds available after dismissal this morning. [facility] Dr. Barnes in the emergency room accepted ER to ER for evaluation of potential compartment syndrome. A call was put into Jessy and Yelena Ewing. Ebony Prajapati called us back. We informed them that we already had an accepting physician. Transfer Time: 06:00 Transfer Facility: [place], [place]; ER to ER Method of Transfer: Air Departure-Patient Inst. Referrals: STEPHANIE GONZALEZ DO (PCP/Family) Primary Care Physician LAINE THAYER Aug 18, 2020 22:39
[2020-08-18 22:41] LABS: BASOPHILS % (AUTO) 0 % (0-10); EOSINOPHILS % (AUTO) 1 % (0-10); HEMATOCRIT 34 % (40-54); HEMOGLOBIN 11.4 g/dL (13.3-17.7); LYMPHOCYTES # (AUTO) 1.8 10^3/uL (1.0-4.0); LYMPHOCYTES % (AUTO) 25 % (12-44); MEAN CORPUSCULAR HEMOGLOBIN 35 pg (25-34); MEAN CORPUSCULAR HGB CONC 33 g/dL (32-36); MEAN CORPUSCULAR VOLUME 105 fL (80-99); MEAN PLATELET VOLUME 10.7 fL (9.0-12.2); MONOCYTES # (AUTO) 0.8 10^3/uL (0.0-1.0); MONOCYTES % (AUTO) 11 % (0-12); NEUTROPHILS # (AUTO) 4.6 10^3/uL (1.8-7.8); NEUTROPHILS % (AUTO) 63 % (42-75); PLATELET COUNT 207 10^3/uL (130-400); WHITE BLOOD COUNT 7.3 10^3/uL (4.3-11.0)
[2020-08-18] MEDS ORDERED: LACTATED RINGERS 1,000 ML IV STA (22:41)
[2020-08-18] MEDS ORDERED: NS IV 500 ML 500 ML IV ONE (22:41)
[2020-08-18 22:45] LABS: ALBUMIN 3.3 GM/DL (3.2-4.5); CHLORIDE 99 MMOL/L (98-107); POTASSIUM 4.5 MMOL/L (3.6-5.0); SODIUM 133 MMOL/L (135-145)
[2020-08-18 22:48] LABS: GLUCOSE 195 MG/DL (70-105)
[2020-08-18 22:49] LABS: BILIRUBIN,TOTAL 0.6 MG/DL (0.1-1.0); CARBON DIOXIDE 16 MMOL/L (21-32)
[2020-08-18 22:51] LABS: ALKALINE PHOSPHATASE 68 U/L (40-136); CREATININE SERUM 1.18 MG/DL (0.60-1.30); GFR ESTIMATED > 60
[2020-08-18 22:52] LABS: BUN/CREATININE RATIO 10
[2020-08-18 22:54] LABS: ALANINE AMINOTRANSFERASE 26 U/L (0-55)
[2020-08-18 23:01] LABS: PROTHROMBIN TIME PATIENT 58.9 SEC (12.2-14.7)
[2020-08-18 23:02] LABS: INR 6.8 (0.8-1.4)
[2020-08-18] MEDS ORDERED: VANCOMYCIN INJECTION 750 MG in NS (IVPB) 250 ML IV ONE (23:30)
[2020-08-18] MEDS ORDERED: VITAMIN K 1 MG/ML ORAL SOLN 1 ML SYRINGE PO ONE (23:30)
--- NOTE | 2020-08-19 01:32 | NUR ---
PT'S CALLED AN GIVEN UPDATE. REQUESTED TO SPEAK WITH PT SO CALL TRANSFERRED TO PORTABLE PHONE AND TAKEN TO PT.
[2020-08-19] MEDS ORDERED: VITAMIN K 1 MG/ML ORAL SOLN 1 ML SYRINGE ONE (01:40)
[2020-08-19] MEDS ORDERED: LACTATED RINGERS 1,000 ML IV SCH (01:45)
[2020-08-19 02:26] LABS: CLARITY,URINE CLOUDY; COLOR,URINE AMBER; GLUCOSE, URINE (UA) NEGATIVE (NEGATIVE); KETONES,URINE TRACE (NEGATIVE); LEUKOCYTE ESTERASE ,URINE NEGATIVE (NEGATIVE); NITRITE,URINE NEGATIVE (NEGATIVE); PROTEIN,URINE 1+ (NEGATIVE)
[2020-08-19 02:41] LABS: BILIRUBIN,URINE 1+ (NEGATIVE)
[2020-08-19 02:42] LABS: BACTERIA,URINE TRACE /HPF
[2020-08-19] MEDS ORDERED: HYDROcodone/APAP 5 MG/325 MG (LORTAB) TAB PO ONE (03:15)
[2020-08-19] MEDS ORDERED: fentaNYL INJECTION 100 MCG/2 ML AMP IVP ONE (04:00)
[2020-08-19] MEDS ORDERED: KETAMINE/NaCl 50 MG/5 ML SYRINGE (ED ONLY) IV ONE (04:30)
[2020-08-19] MEDS ORDERED: NS IV 1000 ML 1,000 ML IV SCH (05:03)
[2020-08-19] MEDS ORDERED: PHYTONADIONE (VIT. K) 10 MG/ML AMP IM ONE (05:15)
[2020-08-19] MEDS ORDERED: ONDANSETRON 4 MG/2 ML (SDV) Z0FRAN IVP ONE (05:15)
[2020-08-19] MEDS ORDERED: HUMAN PROTHROMBIN COMPLX(PCC) 500 UNIT (KCENTRA) IV ONE (05:30)
[2020-08-19 06:21] VITALS: BP 106/72
--- NOTE | 2020-08-19 07:11 | Diagnostic Imaging Report ---
PROCEDURE: CT head and CT cervical spine without contrast. TECHNIQUE: Multiple contiguous axial images were obtained through the brain and cervical spine without the use of intravenous contrast. Sagittal and coronal reformations through the cervical spine were then performed. Auto Exposure Controls were utilized during the CT exam to meet ALARA standards for radiation dose reduction. INDICATION: Trauma, fall COMPARISON: 05/11/2014 FINDINGS: No intracranial hemorrhage. No intracranial mass, mass effect, midline shift, herniation, hydrocephalus, or extra-axial fluid collection. Minimal scattered regions of periventricular and subcortical white matter hypodensities are present, most consistent with minimal background chronic small vessel white matter ischemic disease. No definite CT evidence of an acute ischemic infarction. The bilateral ocular lenses are absent. Minimal mucosal thickening of the bilateral maxillary sinuses. Minimal mucosal thickening within scattered ethmoid air cells and within the left frontal sinus. The calvarium and extracalvarial soft tissues are otherwise unremarkable. Alignment of the cervical spine is well maintained. Besides endplate degenerative changes, vertebral body heights appear well maintained. Alignment of the atlantooccipital joint is well maintained. Mild disc space height loss at C6/C7 and C7/T1. No acute fracture or dislocation. No destructive osseous process. Mild scattered facet joint degenerative changes and uncovertebral joint hypertrophy. No severe central canal or neural foraminal stenosis. IMPRESSION: No acute intracranial abnormality with minimal background chronic small vessel white matter ischemic disease. No acute osseous abnormality within the cervical spine with mild multilevel degenerative changes. Minimal paranasal sinus disease. Agree with preliminary interpretation. Dictated by: Dictated on workstation # [id number]
--- NOTE | 2020-08-19 07:18 | Diagnostic Imaging Report ---
INDICATION: Sepsis COMPARISON: 01/25/2017 and 01/28/2017. TECHNIQUE: 2 radiographs of the chest dated 08/19/2020. FINDINGS: The cardiac silhouette is within normal limits in size. No significant pulmonary vascular congestion. Calcified granuloma overlying the right upper lung are again noted. Tenting of the left hemidiaphragm is similar to 2017. The lungs are otherwise clear of focal pulmonary opacity. No pleural effusion. No pneumothorax. No acute osseous abnormality. IMPRESSION: No acute cardiopulmonary abnormality with chronic findings as above. Dictated by: Dictated on workstation # [id number]
--- NOTE | 2020-08-19 07:19 | Diagnostic Imaging Report ---
INDICATION: Pelvic pain COMPARISON: 04/17/2014 TECHNIQUE: 3 radiographs of the pelvis and right hip dated 08/19/2020. FINDINGS: Lateral plate and screw fixation of the right femur and right hip is noted. 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 No evidence of hardware complication. Chronic healed mid right femoral shaft fracture is present. No acute fracture or dislocation. No destructive osseous process. No abnormal widening of the sacroiliac joints with partial ankylosis of the right sacroiliac joint suggested. Convex margin of the left femoral head and neck is present. Multiple phleboliths within the lower pelvis. IMPRESSION: No acute traumatic abnormality. Postsurgical changes associated with the right hip with ankylosis of the right hip without hardware complication. Abnormal contour of the left femoral head and neck, which can be seen with impingement syndrome. Recommend clinical correlation for impingement syndrome. Dictated by: Dictated on workstation # [id number]
== END 2020-08-19 06:12 | disposition short-term general hospital (02) ==
LOC: EDUNIT# 22:00 → ER 22:01
DX: T79.A21A Traumatic compartment syndrome of right lower extremity, initial encounter (principal); S70.11XA Contusion of right thigh, initial encounter; R79.1 Abnormal coagulation profile; R57.9 Shock, unspecified; F17.210 Nicotine dependence, cigarettes, uncomplicated; I10 Essential (primary) hypertension; Z86.718 Personal history of other venous thrombosis and embolism; Z82.49 Family history of ischemic heart disease and other diseases of the circulatory system; Z79.01 Long term (current) use of anticoagulants; Z86.73 Personal history of transient ischemic attack (TIA), and cerebral infarction without residual deficits; W19.XXXA Unspecified fall, initial encounter
CPT/HCPCS: 70450; 71045; 72125; 73502; 80053; 81000; 83605 ×2; 84145; 84484; 85025; 85610; 85730; 86141; 87040; 87088; 87804; 93005; 99284; U0002; 36415; 87635

== ENCOUNTER → 2021-05-06 | Outpatient (CLI) | payer MEDICAID ==
--- NOTE | 2021-05-06 13:43 | Diagnostic Imaging Report ---
INDICATION: COPD. Emphysema. COMPARISON: 08/19/2020 FINDINGS: Frontal and lateral radiographic views of the chest were obtained and demonstrate persistent eventration of the left hemidiaphragm with left basilar scarring. Note is also made of 6 mm micronodular opacity projecting over the mid to lower right lateral lung. Otherwise, lungs are clear. There is no large effusion or pneumothorax. Cardiac silhouette and pulmonary vasculature are within normal limits. Osseous structures show no gross acute abnormalities. IMPRESSION: 1. Stable eventration of the left hemidiaphragm. 2. No new focal infiltrate or evidence of failure. 3. Small micronodular opacity projecting over the lower right lung. This could be artifact related to nipple shadow. Repeat chest radiograph with placement of external nipple markers is recommended. Alternatively, CT of the chest could be performed. Dictated by: Dictated on workstation # [id number]
== END ==
LOC: RAD 12:59
PROVIDERS: ATTEND Internal Medicine
DX: J43.9 Emphysema, unspecified (principal); R56.9 Unspecified convulsions; R91.8 Other nonspecific abnormal finding of lung field; Z79.01 Long term (current) use of anticoagulants
CPT/HCPCS: 71046

== ENCOUNTER → 2021-08-04 | Outpatient (CLI) | payer MEDICAID ==
--- NOTE | 2021-08-04 14:36 | Diagnostic Imaging Report ---
Indication: Emphysema. Comparison made with prior examination from 05/04/2021 FINDINGS: Heart size is normal. There is chronic appearing scarring in the left lung base. There is no pleural effusion or pneumothorax. The mediastinum is unremarkable. IMPRESSION: Chronic scarring left lung base otherwise unremarkable. Dictated by: Dictated on workstation # [id number]
== END ==
LOC: RAD 13:30
PROVIDERS: ATTEND Internal Medicine
DX: J43.9 Emphysema, unspecified (principal)
CPT/HCPCS: 71046

== ENCOUNTER → 2022-05-15 | Outpatient (CLI) | payer MEDICAID ==
[~2022-05-15] VITALS: Ht 177 cm; Wt 86.0 kg
[~2022-05-15] MED LIST changes: +REGADENOSON 0.4 MG/5 ML SYR (LEXISCAN) IV ONE
[2022-05-15] MEDS: CATHETER FLUSH 10 ML SYR IVP PRN ×2 (06:58→08:00)
[2022-05-15 08:05] VITALS: BP 170/106
--- NOTE | 2022-05-15 13:01 | NUCLEAR STRESS TEST ---
REGADENOSON NUCLEAR STRESS Date of procedure: 05/15/2022. Primary care provider: Mo Beltran DO Admitting physician: Mo Beltran DO. INDICATION: Other fatigue. STRESS TEST PROCEDURE: This is the nuclear portion of a regadenoson nuclear stress test. Please see other report for electrocardiogram findings. NUCLEAR PROCEDURE: The patient was administered 11 mCi of intravenous technetium 99m Tetrofosmin at rest for the rest images. The patient was subsequently administered 30 mCi of intravenous technetium 99m Tetrofosmin at peak stress for the stress images. Following an appropriate wait after each injection, imaging was obtained. The images were subsequently processed and reformatted in the usual views. Gated imaging was obtained. The image quality was adequate with a mild degree of gastrointestinal attenuation artifact. CT attenuation correction was used as a adjunct to standard imaging. Both the corrected and uncorrected images were reviewed for interpretation. NUCLEAR RESULTS: There was normal myocardial perfusion in all segments without evidence of infarction or ischemia. There was normal left ventricular chamber size with an end-diastolic volume of 70 mL and an end-systolic volume of 24 mL. There was no evidence of transient ischemic dilatation. The TID ratio was 1.17. There was normal wall motion in all segments with a calculated ejection fraction of 66%. IMPRESSION: 1. This is the nuclear portion of a regadenoson nuclear stress test. 2. There was normal myocardial perfusion in all segments without evidence of infarction or ischemia. 3. There was normal wall motion in all segments with a calculated ejection fraction of 66%. Certain portions of this document may have been dictated utilizing voice recognition technology. Inherent to this technology, typographical and grammatical errors may exist. As much as I am diligent to identify and correct these mistakes, some errors may remain in the document. BERNY ORTEGA JR, MD May 15, 2022 13:01
== END ==
LOC: CARD 07:00
PROVIDERS: ATTEND Internal Medicine
DX: J43.9 Emphysema, unspecified (principal); E78.2 Mixed hyperlipidemia; R56.9 Unspecified convulsions; N52.8 Other male erectile dysfunction; K57.30 Diverticulosis of large intestine without perforation or abscess without bleeding
CPT/HCPCS: 78452; 93017; A9502